=== PATIENT | female | born 1930 | race Caucasian/White ===

== ENCOUNTER → 2016-05-08 | Outpatient (CLI) | payer MEDICARE, OTHER | LOC: RAD 11:59 | PROVIDERS: ATTEND Family Medicine | DX: E04.1 Nontoxic single thyroid nodule (principal) | CPT/HCPCS: 76536; 78013; A9512; Q9969 ==

== ENCOUNTER 2019-08-23 05:48 | Inpatient (IN) | payer MEDICARE, OTHER ==
[2019-08-23] MEDS ORDERED: NORMAL SALINE 1000 ML 1,500 ML IV ONE (06:15)
--- NOTE | 2019-08-23 06:19 | ER Document Report ---
ED Fever - General TRAVEL OUTSIDE OF THE [place] IN LAST 30 DAYS: No <YOLANDA SCHMIDT - Last Filed: 08/23/19 08:12> <ZINA VIVEROS - Last Filed: 08/23/19 10:25> - General Chief Complaint: Fever Stated Complaint: COUGH Time Seen by Provider: 08/23/19 06:03 Primary Care Provider: RONALD AYALA MD [Primary Care Provider] - Follow up as needed Notes: Patient is an 88-year-old female that comes emergency department for chief complaint of an cough for the past 3 days. She states that she initially had the cough, felt like it was improving, but then suddenly worsened over the past evening. She comes by EMS, was found to have an initial temperature of 102 F. Patient was given 975 mg Tylenol. Patient denies sore throat, headache, chest pain, abdominal pain, vomiting, diarrhea, or shortness of breath at this time. She denies that the cough is productive. She denies recent illness exposure or travel, she states she has been staying home as much as possible. Patient is generally very healthy, has never smoked, denies any cardiovascular history, her only reported medical history is hyperlipidemia and hypothyroidism. Patient lives at home with her daughter. (YOLANDA SCHMIDT) - Related Data Allergies/Adverse Reactions: bacitracin [From Neosporin] Allergy (Severe, Verified 05/02/15 14:30) gramicidin D [From Neosporin] Allergy (Severe, Verified 05/02/15 14:30) neomycin sulfate [From Neosporin] Allergy (Severe, Verified 05/02/15 14:30) polymyxin B [From Neosporin] Allergy (Severe, Verified 05/02/15 14:30) Past Medical History - General Information source: Patient - Social History Smoking Status: Never Smoker Chew tobacco use (# tins/day): No Frequency of alcohol use: None Drug Abuse: None Lives with: Family Family History: Reviewed & Not Pertinent Patient has homicidal ideation: No - Past Medical History Cardiac Medical History: Reports: Hx Hypercholesterolemia - meds x 1 year Denies: Hx Atrial Fibrillation, Hx Congestive Heart Failure, Hx Coronary Artery Disease, Hx Heart Attack, Hx Peripheral Vascular Disease, Hx Heart Murmur Pulmonary Medical History: Denies: Hx Asthma Neurological Medical History: Denies: Hx Cerebrovascular Accident, Hx Seizures Endocrine Medical History: Reports: Hx Hypothyroidism - meds x 30 years. Denies: Hx Graves' Disease, Hx Hyperthyroidism Renal/ Medical History: Reports: Hx Ovarian Cysts - unilat S&O at age 26 years. Denies: Hx End Stage Renal Disease, Hx Kidney Stones, Hx Peritoneal Dialysis, Hx Pelvic Inflammatory Disease Malignancy Medical History: Denies: Hx Breast Cancer, Hx Cervical Cancer, Hx Leukemia, Hx Ovarian Cancer GI Medical History: Denies: Hx Hepatitis, Hx Hiatal Hernia, Hx Ulcer Musculoskeletal Medical History: Reports Hx Arthritis, Denies Hx Fibromyalgia, Denies Hx Systemic Lupus Erythematosus Psychiatric Medical History: Reports: Hx Depression Denies: Hx Bipolar Disorder, Hx Post Traumatic Stress Disorder, Hx Schizophrenia Traumatic Medical History: Reports: Hx Fractures - conner hips, 2002 LT, 2008 RT Infectious Medical History: Denies: Hx Hepatitis, Hx HIV Past Surgical History: Reports: Hx Appendectomy - at age [age] years old, Hx Tonsillectomy - as child. Denies: Hx Bowel Surgery, Hx Section, Hx Cholecystectomy, Hx Coronary Artery Bypass Graft, Hx Gastric Bypass Surgery, Hx Herniorrhaphy, Hx Hysterectomy, Hx Mastectomy, Hx Open Heart Surgery, Hx Pacemaker, Hx Tubal Ligation <YOLANDA SCHMIDT - Last Filed: 08/23/19 08:12> Review of Systems - Review of Systems Constitutional: See HPI EENT: No symptoms reported Cardiovascular: No symptoms reported Respiratory: See HPI Gastrointestinal: No symptoms reported Genitourinary: No symptoms reported Female Genitourinary: No symptoms reported Musculoskeletal: No symptoms reported Skin: No symptoms reported Hematologic/Lymphatic: No symptoms reported Neurological/Psychological: No symptoms reported <YOLANDA SCHMIDT - Last Filed: 08/23/19 08:12> Physical Exam <YOLANDA SCHMIDT - Last Filed: 08/23/19 08:12> - Vital signs Vitals: Temp Pulse Resp BP Pulse Ox 99.9 F 104 H 20 136/56 H 93 08/23/19 05:56 08/23/19 05:56 08/23/19 05:56 08/23/19 05:56 08/23/19 05:56 - Notes Notes: GENERAL: Alert, interacts well. No acute distress. HEAD: Normocephalic, atraumatic. EYES: Pupils equal, round, and reactive to light. Extraocular movements intact. ENT: Oral mucosa moist, tongue midline. Oropharynx unremarkable. Airway patent. Nares patent, sinuses non-tender NECK: Full range of motion. Supple. Trachea midline. No lymphadenopathy. LUNGS: Coarse breath sounds bilaterally, no wheezes, rales, or rhonchi. No respiratory distress. Non-tender chest wall. Speaks in full sentences. HEART: Borderline tachycardic, normal rhythm, no murmur ABDOMEN: Soft, non-tender. Non-distended. No guarding or rigidity. Normal bowel sounds. EXTREMITIES: Moves all 4 extremities spontaneously. No edema, normal radial and dorsalis pedis pulses bilaterally. No cyanosis. BACK: no cervical, thoracic, lumbar midline tenderness. No saddle anesthesia, normal distal neurovascular exam. Moves all extremities in full range of motion. NEUROLOGICAL: Alert and oriented x3. Normal speech. Cranial nerves II through XII grossly intact. Strength 5/5 in all extremities. PSYCH: Normal affect, normal mood. SKIN: Warm, dry, normal turgor. No rashes or lesions noted. (YOLANDA SCHMIDT) Course - Laboratory Result Diagrams: 08/23/19 06:30 08/23/19 06:30 <YOLANDA SCHMIDT - Last Filed: 08/23/19 08:12> - Laboratory Result Diagrams: 08/23/19 06:30 08/23/19 06:30 - Diagnostic Test Radiology reviewed: Reports reviewed <ZINA VIVEROS - Last Filed: 08/23/19 10:25> - Re-evaluation Re-evalutation: Patient is borderline tachycardic, has borderline hypoxia on room air, and she does have a cough and some coarse breath sounds. Clinically suspect she has pneumonia. Septic work-up pending. Starting on 30 cc/kg IV fluids which alicia culates approximately 1500 mL's, starting on Rocephin. CBC shows no leukocytosis but does show 2% bands and elevated neutrophils. Nonspecific. Chemistry shows elevated LFTs with AST at 1200s. Bilirubin is slightly elevated as well. I suspect this is reactive, possibly from sepsis. Lactic acid is 3.3. Chest x-ray showing possible left lower lobe pneumonia and large hiatal hernia. Blood gas unremarkable. Patient mildly hypoxic and on evaluation she actually became hypoxic down to 87% when she fell asleep. She was placed on 2 L nasal cannula. Clinical picture is most consistent with pneumonia, sepsis without shock, hypoxia requiring oxygen. Patient will require admission. Right upper quadrant ultrasound was added because of abnormal liver function tests and bilirubin. 08/23/19 08:[address] Otero, hospitalist, request right upper quadrant ultrasound results first and a call back. Report was given to Zina WOOD. (ROXANA,YOLANDA) 08/23/19 09:37 Patient's ultrasound report back, no findings for acute cholecystitis, attempted to call hospitalist Dr. Yoon for admission, he will call back within 20 minutes. 08/23/19 10:15 Consulted with regarding patient presentation, Dr. Yoon does agree to accept patient to telemetry medical bed at this time. (ZINA VIVEROS) - Vital Signs Vital signs: Temp Pulse Resp BP Pulse Ox 99.9 F 104 H 18 118/56 L 99 08/23/19 05:57 08/23/19 05:56 08/23/19 08:00 08/23/19 08:31 08/23/19 08:00 - Laboratory Laboratory results interpreted by me: 08/23/19 08/23/19 08/23/19 06:30 06:30 06:30 RDW 14.7 H Seg Neuts % (Manual) 88 H Band Neutrophils % 2 L Lymphocytes % (Manual) 6 L Abs Lymphs (Manual) 0.3 L Potassium 3.2 L Glucose 159 H Lactic Acid 3.3 H Total Bilirubin 1.7 H Direct Bilirubin 1.0 H AST 1260 H ALT 439 H Alkaline Phosphatase 151 H Albumin 3.4 L Urine Protein Urine Blood Urine Urobilinogen Leukocyte Esterase Rfl 08/23/19 08/23/19 09:45 09:45 RDW Seg Neuts % (Manual) Band Neutrophils % Lymphocytes % (Manual) Abs Lymphs (Manual) Potassium Glucose Lactic Acid 2.3 H Total Bilirubin Direct Bilirubin AST ALT Alkaline Phosphatase Albumin Urine Protein 30 H Urine Blood MODERATE H Urine Urobilinogen 4.0 H Leukocyte Esterase Rfl TRACE H 08/23/19 10:25 Labs- All tests 24 hr 08/23/19 08/23/19 08/23/19 06:30 06:30 06:30 WBC 4.8 RBC 4.08 Hgb 12.8 Hct 37.1 MCV 91 MCH 31.4 MCHC 34.5 RDW 14.7 H Plt Count 181 Lymph % (Auto) Not Reportable [place] % (Auto) Not Reportable Eos % (Auto) Not Reportable Baso % (Auto) Not Reportable Absolute Neuts (auto) Not Reportable Absolute Lymphs (auto) Not Reportable Absolute Monos (auto) Not Reportable Absolute Eos (auto) Not Reportable Absolute Basos (auto) Not Reportable Total Counted 100 Seg Neutrophils % Not Reportable Seg Neuts % (Manual) 88 H Band Neutrophils % 2 L Lymphocytes % (Manual) 6 L Monocytes % (Manual) 3 Eosinophils % (Manual) 1 Basophils % (Manual) 0 Abs Neuts (Manual) 4.3 Abs Lymphs (Manual) 0.3 L Abs Monocytes (Manual) 0.1 Absolute Eos (Manual) 0.0 Abs Basophils (Manual) 0.0 Clumped Platelets PRESENT Platelet Comment ADEQUATE Anisocytosis SLIGHT PT 14.8 INR 1.15 VBG pH VBG pCO2 VBG HCO3 VBG Base Excess Sodium Potassium Chloride Carbon Dioxide Anion Gap BUN Creatinine Est GFR ( Amer) Est GFR (MDRD) Non-Af Glucose Lactic Acid 3.3 H Calcium Total Bilirubin Direct Bilirubin Neonat Total Bilirubin Neonat Direct Bilirubin Neonat Indirect Bili AST ALT Alkaline Phosphatase Troponin I Total Protein Albumin Urine Color Urine Appearance Urine pH Ur Specific Cory Urine Protein Urine Glucose (UA) Urine Ketones Urine Blood Urine Nitrite (Reflex) Urine Bilirubin Urine Urobilinogen Leukocyte Esterase Rfl Urine RBC (Auto) Urine Bacteria (Auto) Urine WBC (Reflex) Squamous Epi Cells Auto Urine Mucus (Auto) Urine Ascorbic Acid SARS-CoV-2 (PCR) 08/23/19 08/23/19 08/23/19 06:30 06:30 06:30 WBC RBC Hgb Hct MCV MCH MCHC RDW Plt Count Lymph % (Auto) [place] % (Auto) Eos % (Auto) Baso % (Auto) Absolute Neuts (auto) Absolute Lymphs (auto) Absolute Monos (auto) Absolute Eos (auto) Absolute Basos (auto) Total Counted Seg Neutrophils % Seg Neuts % (Manual) Band Neutrophils % Lymphocytes % (Manual) Monocytes % (Manual) Eosinophils % (Manual) Basophils % (Manual) Abs Neuts (Manual) Abs Lymphs (Manual) Abs Monocytes (Manual) Absolute Eos (Manual) Abs Basophils (Manual) Clumped Platelets Platelet Comment Anisocytosis PT INR VBG pH 7.39 VBG pCO2 41.9 VBG HCO3 25.0 VBG Base Excess 0.1 Sodium 138.1 Potassium 3.2 L Chloride 103 Carbon Dioxide 29 Anion Gap 6 BUN 11 Creatinine 0.54 Est GFR ( Amer) > 60 Est GFR (MDRD) Non-Af > 60 Glucose 159 H Lactic Acid Calcium 9.4 Total Bilirubin 1.7 H Direct Bilirubin 1.0 H Neonat Total Bilirubin Not Reportable Neonat Direct Bilirubin Not Reportable Neonat Indirect Bili Not Reportable AST 1260 H ALT 439 H Alkaline Phosphatase 151 H Troponin I < 0.012 Total Protein 6.3 Albumin 3.4 L Urine Color Urine Appearance Urine pH Ur Specific Cory Urine Protein Urine Glucose (UA) Urine Ketones Urine Blood Urine Nitrite (Reflex) Urine Bilirubin Urine Urobilinogen Leukocyte Esterase Rfl Urine RBC (Auto) Urine Bacteria (Auto) Urine WBC (Reflex) Squamous Epi Cells Auto Urine Mucus (Auto) Urine Ascorbic Acid SARS-CoV-2 (PCR) 08/23/19 08/23/19 08/23/19 08:20 09:45 09:45 WBC RBC Hgb Hct MCV MCH MCHC RDW Plt Count Lymph % (Auto) [place] % (Auto) Eos % (Auto) Baso % (Auto) Absolute Neuts (auto) Absolute Lymphs (auto) Absolute Monos (auto) Absolute Eos (auto) Absolute Basos (auto) Total Counted Seg Neutrophils % Seg Neuts % (Manual) Band Neutrophils % Lymphocytes % (Manual) Monocytes % (Manual) Eosinophils % (Manual) Basophils % (Manual) Abs Neuts (Manual) Abs Lymphs (Manual) Abs Monocytes (Manual) Absolute Eos (Manual) Abs Basophils (Manual) Clumped Platelets Platelet Comment Anisocytosis PT INR VBG pH VBG pCO2 VBG HCO3 VBG Base Excess Sodium Potassium Chloride Carbon Dioxide Anion Gap BUN Creatinine Est GFR ( Amer) Est GFR (MDRD) Non-Af Glucose Lactic Acid 2.3 H Calcium Total Bilirubin Direct Bilirubin Neonat Total Bilirubin Neonat Direct Bilirubin Neonat Indirect Bili AST ALT Alkaline Phosphatase Troponin I Total Protein Albumin Urine Color YELLOW Urine Appearance SLIGHTLY-CLOUDY Urine pH 6.0 Ur Specific Cory 1.010 Urine Protein 30 H Urine Glucose (UA) NEGATIVE Urine Ketones NEGATIVE Urine Blood MODERATE H Urine Nitrite (Reflex) NEGATIVE Urine Bilirubin NEGATIVE Urine Urobilinogen 4.0 H Leukocyte Esterase Rfl TRACE H Urine RBC (Auto) 2 Urine Bacteria (Auto) 2+ Urine WBC (Reflex) 9 Squamous Epi Cells Auto 1 Urine Mucus (Auto) OCC Urine Ascorbic Acid NEGATIVE SARS-CoV-2 (PCR) NEGATIVE (ZINA VIVEROS) Discharge <YOLANDA SCHMIDT - Last Filed: 08/23/19 08:12> - Discharge Admitting Provider: Onwe (Hospitalist) Unit Admitted: Telemetry <ZINA VIVEROS - Last Filed: 08/23/19 10:25> - Discharge Clinical Impression: Hypoxia Fever Qualifiers: Fever type: unspecified Qualified Code(s): R50.9 - Fever, unspecified Pneumonia Qualifiers: Pneumonia type: due to unspecified organism Laterality: left Lung location: lower lobe of lung Qualified Code(s): J18.9 - Pneumonia, unspecified organism Condition: Fair Disposition: ADMITTED INPATIENT Referrals: RNOALD AYALA MD [Primary Care Provider] - Follow up as needed
[2019-08-23 06:43] LABS: HEMATOCRIT 37.1 % (36.0-47.0); HEMOGLOBIN 12.8 g/dL (12.0-15.5); MEAN CORPUSCULAR HEMOGLOBIN 31.4 pg (27.0-33.4); MEAN CORPUSCULAR HGB CONC 34.5 g/dL (32.0-36.0); MEAN CORPUSCULAR VOLUME 91 fl (80-97); RED BLOOD COUNT 4.08 10^6/uL (3.72-5.28); RED CELL DISTRIBUTION WIDTH 14.7 % (11.5-14.0); WHITE BLOOD COUNT 4.8 10^3/uL (4.0-10.5)
[2019-08-23 06:45] LABS: VENOUS BLOOD BASE EXCESS 0.1 mmol/L; VENOUS BLOOD PCO2 41.9 mmHg (35-63); VENOUS BLOOD PH 7.39 (7.30-7.42)
[2019-08-23 06:57] LABS: INTERNATIONAL RATION (INR) 1.15; PROTHROMBIN TIME 14.8 SEC (11.4-15.4)
[2019-08-23 07:03] LABS: ALBUMIN 3.4 g/dL (3.5-5.0); ALKALINE PHOSPHATASE 151 U/L (38-126); ANION GAP 6 (5-19); BILIRUBIN,TOTAL 1.7 mg/dL (0.2-1.3); BLOOD UREA NITROGEN 11 mg/dL (7-20); CALCIUM 9.4 mg/dL (8.4-10.2); CARBON DIOXIDE 29 mmol/L (22-30); CHLORIDE 103 mmol/L (98-107); GLUCOSE 159 mg/dL (75-110); POTASSIUM 3.2 mmol/L (3.6-5.0); TOTAL PROTEIN 6.3 g/dL (6.3-8.2)
[2019-08-23 07:07] LABS: ABSOLUTE LYMPHOCYTES# (MANUAL) 0.3 10^3/uL (0.5-4.7); ABSOLUTE MONOCYTES # (MANUAL) 0.1 10^3/uL (0.1-1.4); BAND NEUTROPHILS % (MANUAL) 2 % (3-5); BASOPHILS % (MANUAL) 0 % (0-2); EOSINOPHILS % (MANUAL) 1 % (0-6); LYMPHOCYTES % (MANUAL) 6 % (13-45); MONOCYTES % (MANUAL) 3 % (3-13); SEGMENTED NEUTROPHILS % (MAN) 88 % (42-78); TOTAL CELLS COUNTED 100
[2019-08-23 07:09] LABS: ANISOCYTOSIS SLIGHT; PLATELET CLUMPS PRESENT; PLATELET COMMENT ADEQUATE; PLATELET COUNT 181 10^3/uL (150-450)
[2019-08-23] MEDS ORDERED: CEFTRIAXONE 1 GM/D5W RTU 1 GM/50 ML RTUPB IV ONE (07:10)
[2019-08-23 07:11] LABS: ASPARTATE AMINO TRANSFERASE 1260 U/L (14-36)
--- NOTE | 2019-08-23 07:21 | RADIOLOGY REPORT (SQ) ---
CHEST 1 VIEW on 08/23/2019 at 6:39 AM CLINICAL INDICATION: Fever, worsening cough COMPARISON: 03/06/2014 FINDINGS: There has been further increase in size of a very large hiatal hernia. Heart is within normal limits for size. Vascular calcification is noted in the aorta. Biapical pulmonary scarring is noted. There could be opacity in the left lower lung versus this being enteric contents within the stomach. Lungs are otherwise clear. IMPRESSION: 1. Large hiatal hernia. 2. Possible opacity in the left lower lung that could represent an area of pneumonia versus this being enteric contents within the patient's large hiatal hernia. Consider lateral view of the chest or CT to better evaluate.
[2019-08-23] MEDS ORDERED: AZITHROMYCIN INJ 500 MG VIAL IV ONE (07:27)
--- NOTE | 2019-08-23 09:33 | RADIOLOGY REPORT (SQ) ---
EXAM DESCRIPTION: U/S ABDOMEN LIMITED W/O DOP IMAGES COMPLETED DATE/TIME: 08/23/2019 9:17 am REASON FOR STUDY: elevated LFTs, elevated bili, fever COMPARISON: None. TECHNIQUE: Dynamic and static grayscale images acquired of the abdomen and recorded on PACS. [place] selected color Doppler and spectral images recorded. LIMITATIONS: None. FINDINGS: PANCREAS: No masses. Visualized pancreatic duct normal caliber. LIVER: No masses. Echotexture normal. LIVER VASCULATURE: Normal directional flow of the main portal vein and hepatic veins. GALLBLADDER: Decompressed gallbladder with borderline thickened wall measuring 3.4 mm. No pericholec ystic fluid. No cholelithiasis. ULTRASOUND-DETECTED DUNN'S SIGN: Negative. INTRAHEPATIC DUCTS AND COMMON DUCT: CBD and intrahepatic ducts normal caliber. No filling defects. INFERIOR VENA CAVA: Normal flow. AORTA: No aneurysm. RIGHT KIDNEY: Normal size measuring 9.1 cm. Normal echogenicity. No solid or suspicious masses. No h ydronephrosis. No calcifications. PERITONEAL AND RIGHT PLEURAL SPACE: No ascites or effusions. OTHER: No other significant findings. IMPRESSION: 1. Decompressed gallbladder with borderline thickened wall, likely secondary to decompr essed state. No cholelithiasis or other evidence of acute cholecystitis. 2. No biliary ductal dilation or other evidence of acute abdominal process. TECHNICAL DOCUMENTATION: JOB ID: [id number] 2010 [employer]- All Rights Reserved Reading location - IP/workstation name: [email or web address]
[2019-08-23 10:07] LABS: APPEARANCE,URINE SLIGHTLY-CLOUDY; BILIRUBIN,URINE NEGATIVE (NEGATIVE); GLUCOSE, URINE NEGATIVE (NEGATIVE); KETONES,URINE NEGATIVE (NEGATIVE); PROTEIN,URINE 30 mg/dL (NEGATIVE)
[2019-08-23 10:09] LABS: COLOR,URINE YELLOW
[2019-08-23 10:48] LABS: ACETAMINOPHEN < 10 ug/mL (10-30); ALCOHOL < 10 mg/dL (NONE DETECTED)
[2019-08-23] MEDS ORDERED: ALBUTEROL SULFATE 0.083% NEB 2.5 MG/3 ML AMPUL NEB PRN (10:51)
[2019-08-23] MEDS ORDERED: ACETAMINOPHEN 325 MG TABLET PO PRN (10:51)
[2019-08-23] MEDS ORDERED: GUAIFENESIN SYRP 200 MG/10 ML UDC PO PRN (10:51)
--- NOTE | 2019-08-23 11:19 | RADIOLOGY REPORT (SQ) ---
EXAM DESCRIPTION: CT CHEST WITHOUT IMAGES COMPLETED DATE/TIME: 08/23/2019 10:58 am REASON FOR STUDY: cough COMPARISON: Same day radiograph. TECHNIQUE: CT scan performed of the chest without intravenous contrast. Images reviewed with lung, soft tissue and bone windows. Reconstructed coronal and sagittal MPR images reviewed. All images st ored on PACS. All CT scanners at this facility use dose modulation, iterative reconstruction, and/or weight based d osing when appropriate to reduce radiation dose to as low as reasonably achievable (ALARA). [facility]: Dose Right [facility]: CareDose [facility]: Dose Right [facility]: Teradose 4D [facility]: Smart [place] RADIATION DOSE: CT Rad equipment meets quality standard of care and radiation dose reduction techniq ues were employed. CTDIvol: 8.8 mGy. DLP: 311 mGy-cm. mGy. LIMITATIONS: No technical limitations. FINDINGS: LUNGS AND PLEURA: Emphysematous change with upper lobe peripheral predominant areas of sca rring and ground-glass attenuation. Additional dependent mild ground-glass attenuation within the bi lateral lower lobes. Large hiatal hernia with adjacent consolidation, likely atelectasis or scarring . No significant pleural effusion. No pneumothorax. No discrete pulmonary masses. Patchy ground-g lass attenuation obscures evaluation of small pulmonary nodules within the upper lobes. HILAR AND MEDIASTINAL STRUCTURES: No discrete mediastinal, hilar or axillary adenopathy. HEART AND VASCULAR STRUCTURES: No pericardial effusion. Scattered three-vessel coronary atherosclero sis. Mild dilation of the ascending aorta measuring up to 3.7 cm with scattered atherosclerotic plaq ue. Normal heart size. UPPER ABDOMEN: Large hiatal hernia. Scattered aortic atherosclerosis. No acute findings as visualiz ed. THYROID AND OTHER SOFT TISSUES: Heterogeneous thyroid with a 15 mm hypodense left lobe nodule, better evaluated on prior ultrasound. BONES: No acute bony abnormality. Decreased osseous mineralization with multilevel thoracic spondylo sis. No suspicious lytic or blastic osseous lesions. HARDWARE: None in the chest. OTHER: No other significant findings. IMPRESSION: 1. Large hiatal hernia, similar to priors. Mild adjacent left basilar consolidation, l ikely atelectasis or scarring. 2. Emphysematous change. Upper lobe peripheral predominant scarring and ground-glass attenuation leon ggestive of nonspecific fibrotic change. Superimposed infectious/inflammatory process not entirely e xcluded. 3. Additional incidental findings as above. TECHNICAL DOCUMENTATION: JOB ID: [id number] Quality ID # [id number]: Final reports with documentation of one or more dose reduction techniques (e.g., Au tomated exposure control, adjustment of the mA and/or kV according to patient size, use of iterative reconstruction technique) 2010 [employer]- All Rights Reserved Reading location - IP/workstation name: [email or web address]
[2019-08-23 11:20] LABS: URINE AMPHETAMINES SCREEN NEGATIVE; URINE BARBITURATES SCREEN NEGATIVE; URINE BENZODIAZEPINES SCREEN NEGATIVE; URINE COCAINE SCREEN NEGATIVE; URINE MARIJUANA (THC) SCREEN NEGATIVE; URINE METHADONE SCREEN NEGATIVE; URINE PHENCYCLIDINE SCREEN NEGATIVE
[2019-08-23] MEDS ORDERED: POTASSIUM CHLORIDE 10 MEQ TABLET.ER PO ONE (11:30)
[2019-08-23] MEDS: HEPARIN SOD (PORCINE) 5,000 UNIT/ML 1 ML VIAL SUBCUT SCH ×2 (13:17→21:56)
--- NOTE | 2019-08-23 15:18 | RADIOLOGY REPORT (SQ) ---
EXAM DESCRIPTION: L SPINE WHOLE IMAGES COMPLETED DATE/TIME: 08/23/2019 2:49 pm REASON FOR STUDY: back pain; report of compression fractures COMPARISON: Same day chest CT NUMBER OF VIEWS: Five views including obliques. TECHNIQUE: AP, lateral, oblique, and sacral radiographic images acquired of the lumbar spine. LIMITATIONS: None. FINDINGS: MINERALIZATION: Decreased. SEGMENTATION: No definite transitional anatomy. ALIGNMENT: Serpiginous thoracolumbar curvature. VERTEBRAE: Multilevel compression deformities likely involving vertebral bodies L1 through L3, chron[place] city uncertain. Additional biconcave deformity L4 vertebral body, chronicity uncertain. DISCS: Degenerative changes throughout the lumbar spine with multilevel disc height loss and endplate change. POSTERIOR ELEMENTS: Multilevel facet arthropathy. HARDWARE: None in the spine. Partially visualized bilateral hip arthroplasties. PARASPINAL SOFT TISSUES: Extensive vascular calcification. PELVIS: Intact as visualized. No fractures or worrisome bone lesions. SI joints intact. OTHER: No other significant finding. IMPRESSION: 1. Multilevel compression deformities likely involving L1- L4 although evaluation somew hat limited secondary to thoracolumbar curvature. Chronicity uncertain secondary to lack of recent p riors. MRI could be considered for further characterization of chronicity. 2. Severely decreased osseous mineralization. 3. 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 TECHNICAL DOCUMENTATION: JOB ID: [id number] 2010 [employer]- All Rights Reserved Reading location - IP/workstation name: [email or web address]
[2019-08-23] MEDS: ALBUTEROL SULFATE 0.083% NEB 2.5 MG/3 ML AMPUL NEB SCH (15:24)
--- NOTE | 2019-08-23 17:14 | PDOC H&P ---
History of Present Illness Admission Date/PCP: 08/23/19 10:45 RONALD AYAAL MD Patient complains of: fever, cough History of Present Illness: REUBEN VELAZQUEZ is a 88 year old female with a past medical history significant for hypothyroidism, HTN, and HLD who presented to the emergency department via EMS with a complaint of 1 week of intermittent fevers (102 upon EMS arrival), nonproductive cough, and generalized weakness. Spoke with the patient's daughter who reports that she has had slight increase in forgetfulness. Daughter also reports that she has had severe lumbar back pain for the last 2 months; recent x-ray imaging done at her primary care provider's office revealed multiple compression fractures. Due to the COVID precautions, they have not b een able to follow-up with orthopedics or pain management for further evaluation. Otherwise, the daughter has not noted any changes to the patient's health. Evaluation in the emergency department revealed temperature 99.9 (having received Tylenol by EMS), relative tachycardia with a heart rate of 91 tachypnea (RR 28), mild hypoxia on room air (per nursing report 87% although not documented), CBC showed normal WBCs but with elevated neutrophils, and a chemistry showing mild hypokalemia with elevated LFTs (total bili 1.7, AST 1260, ALT 439, alk phos 151) lactic acid elevated to 3.3, negative troponin, negative proBNP, unremarkable urinalysis, and negative toxicology screening including serum EtOH. Chest x-ray revealed a large hiatal hernia with possible left lower lung opacity, although difficult to differentiate due to the hernia with recommendations for CT imaging. Based upon these findings, patient was provided IV fluids, IV Rocephin and azithromycin and subsequently referred to the hospitalist service for further evaluation and management of the above-stated complaints findings. Past Medical History Cardiac Medical History: Reports: Hyperlipidema, Hypertension Pulmonary Medical History: Denies: Asthma EENT Medical History: Reports: None Neurological Medical History: Reports: None Denies: Seizures Endocrine Medical History: Reports: Hypothyroidism Denies: Hyperthyroidism Renal/ Medical History: Denies: End Stage Renal Disease Malignancy Medical History: Denies: Breast Cancer, Cervical Cancer, Leukemia, Ovarian Cancer GI Medical History: Denies: Hepatitis, Hiatal Hernia Musculoskeltal Medical History: Reports: Arthritis, Other - lumbar compression fractures Denies: Fibromyalgia Psychiatric Medical History: Reports: Depression Denies: Bipolar Disorder, Post Traumatic Stress Disorder Hematology: Denies: Hemophilia, Sickle Cell Disease Infectious Medical History: Denies: HIV Past Surgical History Past Surgical History: Reports: Appendectomy, Orthopedic Surgery, Tonsillectomy Denies: Section, Cholecystectomy, Coronary Artery Bypass Graft, Gastric Bypass Surgery, Herniorrhaphy, Hysterectomy, Mastectomy, Pacemaker, Tubal Ligation Social History Information Source: Patient, Relative Lives with: Family Smoking Status: Never Smoker Electronic Cigarette use?: No Frequency of Alcohol Use: None Hx Recreational Drug Use: No Drugs: None Hx Prescription Drug Abuse: No - Advance Directive Resuscitation Status: Do Not Resuscitate Surrogate healthcare decision maker:: Patient's daughter, Maggie Velazquez Family History Family History: Reviewed & Not Pertinent Parental Family History Reviewed: Yes Children Family History Reviewed: Yes Sibling(s) Family History Reviewed.: Yes Medication/Allergy Home Medications: Aspirin [Ecotrin 81 mg EC Tablet] 81 mg PO DAILY 03/28/14 Brimonidine Tartrate [Alphagan P] 1 drop OD Q8 03/28/14 Dorzolamide HCl/Timolol Maleat [Cosopt Oph Soln 10 Ml Bottle] 1 drop OD BID 03/28/14 Levothyroxine Sodium [Synthroid] 50 mcg PO QAM 03/28/14 Duloxetine HCl [Cymbalta 20 Mg Capsule.Dr] 20 mg PO DAILY 08/23/19 Allergies/Adverse Reactions: bacitracin [From Neosporin] Allergy (Severe, Verified 05/02/15 14:30) gramicidin D [From Neosporin] Allergy (Severe, Verified 05/02/15 14:30) neomycin sulfate [From Neosporin] Allergy (Severe, Verified 05/02/15 14:30) polymyxin B [From Neosporin] Allergy (Severe, Verified 05/02/15 14:30) Review of Systems Constitutional: PRESENT: fatigue, fever(s). ABSENT: chills, headache(s), weight gain, weight loss Eyes: ABSENT: visual disturbances Ears: ABSENT: hearing changes Cardiovascular: ABSENT: chest pain, dyspnea on exertion, edema, orthropnea, palpitations Respiratory: PRESENT: cough, dyspnea. ABSENT: hemoptysis Gastrointestinal: ABSENT: abdominal pain, constipation, diarrhea, hematemesis, hematochezia, nausea, vomiting Genitourinary: ABSENT: dysuria, hematuria Musculoskeletal: ABSENT: joint swelling Integumentary: ABSENT: rash, wounds Neurological: ABSENT: abnormal gait, abnormal speech, confusion, dizziness, focal weakness, syncope Psychiatric: ABSENT: anxiety, depression, homidical ideation, suicidal ideation Endocrine: ABSENT: cold intolerance, heat intolerance, polydipsia, polyuria Hematologic/Lymphatic: ABSENT: easy bleeding, easy bruising Physical Exam Vital Signs: Temp Pulse Resp BP Pulse Ox 97.9 F 85 18 130/49 H 95 08/23/19 15:19 08/23/19 15:24 08/23/19 15:24 08/23/19 15:19 08/23/19 15:24 Intake & Output 08/22/19 08/23/19 08/24/19 06:59 06:59 06:59 Intake Total 1550 Balance 1550 Weight 49.895 kg 50.9 kg General appearance: PRESENT: no acute distress, cooperative, thin, well- developed Head exam: PRESENT: atraumatic, normocephalic Eye exam: PRESENT: conjunctiva pink, EOMI, PERRLA. ABSENT: scleral icterus Mouth exam: PRESENT: moist, tongue midline Respiratory exam: PRESENT: clear to auscultation conner, decreased breath sounds, symmetrical, unlabored, other - Supplemental oxygen; home O2 dependent. ABSENT: rales, rhonchi, wheezes Cardiovascular exam: PRESENT: RRR. ABSENT: diastolic murmur, rubs, systolic m urmur Pulses: PRESENT: normal dorsalis pedis pul Vascular exam: PRESENT: normal capillary refill GI/Abdominal exam: PRESENT: normal bowel sounds, soft. ABSENT: distended, guarding, mass, organolmegaly, rebound, tenderness Rectal exam: PRESENT: deferred Extremities exam: PRESENT: full ROM. ABSENT: calf tenderness, clubbing, pedal edema Neurological exam: PRESENT: alert, awake, oriented to person, oriented to place, oriented to time, oriented to situation, CN II-XII grossly intact, other - Forgetful and slightly confused; self corrects during conversation. ABSENT: motor sensory deficit Psychiatric exam: PRESENT: appropriate affect, normal mood. ABSENT: homicidal ideation, suicidal ideation Skin exam: PRESENT: dry, intact, warm. ABSENT: cyanosis, rash Results Laboratory Results: 08/23/19 06:30 08/23/19 06:30 08/23/19 08/23/19 08/23/19 06:30 06:30 06:30 WBC 4.8 RBC 4.08 Hgb 12.8 Hct 37.1 MCV 91 MCH 31.4 MCHC 34.5 RDW 14.7 H Plt Count 181 Seg Neutrophils % Not Reportable VBG pH VBG pCO2 VBG HCO3 VBG Base Excess Sodium 138.1 Potassium 3.2 L Chloride 103 Carbon Dioxide 29 Anion Gap 6 BUN 11 Creatinine 0.54 Est GFR ( Amer) > 60 Glucose 159 H Lactic Acid 3.3 H Calcium 9.4 Total Bilirubin 1.7 H AST 1260 H Alkaline Phosphatase 151 H Total Protein 6.3 Albumin 3.4 L Urine Color Urine Appearance Urine pH Ur Specific Dexter Urine Protein Urine Glucose (UA) Urine Ketones Urine Blood Urine RBC (Auto) 08/23/19 08/23/19 08/23/19 06:30 09:45 09:45 WBC RBC Hgb Hct MCV MCH MCHC RDW Plt Count Seg Neutrophils % VBG pH 7.39 VBG pCO2 41.9 VBG HCO3 25.0 VBG Base Excess 0.1 Sodium Potassium Chloride Carbon Dioxide Anion Gap BUN Creatinine Est GFR ( Amer) Glucose Lactic Acid 2.3 H Calcium Total Bilirubin AST Alkaline Phosphatase Total Protein Albumin Urine Color YELLOW Urine Appearance SLIGHTLY-CLOUDY Urine pH 6.0 Ur Specific Dexter 1.010 Urine Protein 30 H Urine Glucose (UA) NEGATIVE Urine Ketones NEGATIVE Urine Blood MODERATE H Urine RBC (Auto) 2 08/23/19 13:47 WBC RBC Hgb Hct MCV MCH MCHC RDW Plt Count Seg Neutrophils % VBG pH VBG pCO2 VBG HCO3 VBG Base Excess Sodium Potassium Chloride Carbon Dioxide Anion Gap BUN Creatinine Est GFR ( Amer) Glucose Lactic Acid 3.0 H Calcium Total Bilirubin AST Alkaline Phosphatase Total Protein Albumin Urine Color Urine Appearance Urine pH Ur Specific Dexter Urine Protein Urine Glucose (UA) Urine Ketones Urine Blood Urine RBC (Auto) 08/23/19 08/23/19 06:30 06:30 Troponin I < 0.012 NT-Pro-B Natriuret Pep 263 Impressions: Chest CT 08/23/19 00:00 IMPRESSION: 1. Large hiatal hernia, similar to priors. Mild adjacent left basilar consolidation, likely atelectasis or scarring. 2. Emphysematous change. Upper lobe peripheral predominant scarring and ground-glass attenuation suggestive of nonspecific fibrotic change. Superimposed infectious/inflammatory process not entirely excluded. 3. Additional incidental findings as above. Lumbar Spine X-Ray 08/23/19 00:00 IMPRESSION: 1. Multilevel compression deformities likely involving L1- L4 alt rohan evaluation somewhat limited secondary to thoracolumbar curvature. Chronicity uncertain secondary to lack of recent priors. MRI could be considered for further characterization of chronicity. 2. Severely decreased osseous mineralization. 3. 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 Chest X-Ray 08/23/19 06:16 IMPRESSION: 1. Large hiatal hernia. 2. Possible opacity in the left lower lung that could represent an area of pneumonia versus this being enteric contents within the patient's large hiatal hernia. Consider lateral view of the chest or CT to better evaluate. Abdomen Ultrasound 08/23/19 07:52 IMPRESSION: 1. Decompressed gallbladder with borderline thickened wall, likely secondary to decompressed state. No cholelithiasis or other evidence of acute cholecystitis. 2. No biliary ductal dilation or other evidence of acute abdominal process. Assessment and Plan - Diagnosis (1) Pneumonia Qualifiers: Pneumonia type: due to unspecified organism Laterality: left Lung location: lower lobe of lung Qualified Code(s): J18.9 - Pneumonia, unspecified organism Is this a current diagnosis for this admission?: Yes Plan: CT chest showed a large hiatal hernia with mild adjacent left basilar consolidation likely atelectasis versus scarring. Emphysema type changes to the periphery of the upper lobes; superimposed infectious process not excluded. Blood cultures pending. Sputum cultures ordered. Patient is admitted to the medical floor on continuous cardiac telemetry. She is provided supplemental oxygen as needed to maintain saturations greater than 89%. Empirically placed on IV azithromycin and Rocephin. Scheduled and as needed nebulizer treatments. Robitussin as needed. Incentive spirometer at bedside. (2) Sepsis Qualifiers: Sepsis type: sepsis due to unspecified organism Sepsis acute organ dysfunction status: with acute organ dysfunction Severe sepsis acute organ dysfunction type: acute liver failure Hepatic coma status: without hepatic coma Severe sepsis shock status: without septic shock Qualified Code(s): A41.9 - Sepsis, unspecified organism; R65.20 - Severe sepsis without septic shock; K72.00 - Acute and subacute hepatic failure without coma Is this a current diagnosis for this admission?: Yes Plan: Sepsis, present on admission, presumably related to pneumonia, evidenced by fever, tachypnea, hypoxia, liver dysfunction, and elevated lactic acid. Patient received adequate IV fluid resuscitation in the ED; will continue gentle IV fluids. Blood and urine cultures are pending. Sputum culture ordered. She is empirically placed on IV Rocephin and azithromycin. (3) Elevated LFTs Is this a current diagnosis for this admission?: Yes Plan: Likely secondary to sepsis. Total bili 1.7, AST 1260, ALT 439, alk phos 151 RUQ ultrasound was benign. Spoke with her primary care provider, Dr. Woodard, today. Her routine lab work from last year showed normal transaminases. Discussed with patient and daughter; does not drink alcohol, no history of alcohol dependence, and no known history of hepatitis. IV fluids as above. Cultures and antibiotics as above. Follow-up chemistries. (4) Lumbar compression fracture Qualifiers: Lumbar vertebra fracture level: unspecified lumbar vertebra Is this a current diagnosis for this admission?: Yes Plan: Multi-level compression deformities L1-L4. Analgesics as needed. Nonpharmacological interventions. Pain management has been consulted; spoke with Dr. Martinez today. Once patient's sepsis has resolved, PNA treated, and cultures resulted will obtain MRI imagining to evaluate for possible kyphoplasty. Appreciate his evaluation and recommendations. (5) Hypothyroidism Is this a current diagnosis for this admission?: Yes Plan: Continue home dose levothyroxine (6) Fever Qualifiers: Fever type: unspecified Qualified Code(s): R50.9 - Fever, unspecified Is this a current diagnosis for this admission?: Yes Plan: Secondary to #1 and 2. Tylenol as needed. Remaining management as above. - Time Time Spent with patient: 35 or more minutes Medications reviewed and adjusted accordingly: Yes Anticipated discharge: Home - Inpatient Certification Based on my medical assessment, after consideration of the patient's comorbidities, presenting symptoms, or acuity I expect that the services needed warrant INPATIENT care.: Yes I certify that my determination is in accordance with my understanding of Medicare's requirements for reasonable and necessary INPATIENT services [42 CFR 412.3e].: Yes Medical Necessity: Need Close Monitoring Due to Risk of Patient Decompensation, Need For IV Fluids, Need For Continuous Telemetry Monitoring, Need for IV Antibiotics, Risk of Complication if Not Cared For in Hospital
[2019-08-23] MEDS: NORMAL SALINE 1000 ML 1,000 ML IV PRN (18:37)
[2019-08-23] MEDS: DORZOLAMIDE HCL 2%/TIMOLOL MALEAT 0.5% OPH SOLN 10 ML OD SCH (19:28)
[2019-08-23] MEDS ORDERED: NORMAL SALINE 1000 ML 1,000 ML IV ONE (20:30)
[2019-08-23] MEDS: FAMOTIDINE 20 MG TABLET PO SCH (21:56)
[2019-08-23] MEDS ORDERED: (PENDING PHARMACY ID) (Brimonidine Tartrate [Alphagan P] 1 DROP) OD SCH (22:00)
[2019-08-23] MEDS ORDERED: VANCOMYCIN HCL INJ 1000 MG VIAL IV PRN (22:36)
[2019-08-23] MEDS ORDERED: PHARMACY COMMUNICATION ORDER MC PRN (22:37)
[2019-08-23] MEDS ORDERED: VANCOMYCIN HCL 1,250 MG in DEXTROSE 5%-WATER 250 ML IV ONE (23:00)
[2019-08-23] MEDS ORDERED: VANCOMYCIN HCL INJ 500 MG VIAL ONE (23:09)
[2019-08-23] MEDS ORDERED: VANCOMYCIN HCL INJ 1000 MG VIAL ONE (23:09)
--- NOTE | 2019-08-23 23:36 | EKG REPORT ---
SEVERITY:- ABNORMAL ECG - SINUS RHYTHM ABNORMAL T, CONSIDER ISCHEMIA, LATERAL LEADS : Confirmed by: Ming Christianson 23-Aug-2019 23:35:56
[2019-08-24] MEDS: ALBUTEROL SULFATE 0.083% NEB 2.5 MG/3 ML AMPUL NEB SCH ×4 (00:41→23:56)
[2019-08-24 04:36] LABS: HEPATITS B SURFACE ANTIGEN Negative (Negative)
[2019-08-24] MEDS: HEPARIN SOD (PORCINE) 5,000 UNIT/ML 1 ML VIAL SUBCUT SCH ×3 (05:34→21:13)
[2019-08-24 05:43] LABS: HEMATOCRIT 33.8 % (36.0-47.0); HEMOGLOBIN 11.7 g/dL (12.0-15.5); MEAN CORPUSCULAR HEMOGLOBIN 31.7 pg (27.0-33.4); MEAN CORPUSCULAR HGB CONC 34.6 g/dL (32.0-36.0); MEAN CORPUSCULAR VOLUME 92 fl (80-97); PLATELET COUNT 109 10^3/uL (150-450); RED BLOOD COUNT 3.69 10^6/uL (3.72-5.28); RED CELL DISTRIBUTION WIDTH 15.2 % (11.5-14.0); WHITE BLOOD COUNT 9.4 10^3/uL (4.0-10.5)
[2019-08-24 06:07] LABS: ALBUMIN 2.7 g/dL (3.5-5.0); ALKALINE PHOSPHATASE 151 U/L (38-126); ANION GAP 5 (5-19); ASPARTATE AMINO TRANSFERASE 698 U/L (14-36); BILIRUBIN,DIRECT 2.1 mg/dL (0.0-0.4); BILIRUBIN,TOTAL 2.7 mg/dL (0.2-1.3); BLOOD UREA NITROGEN 8 mg/dL (7-20); CARBON DIOXIDE 27 mmol/L (22-30); CHLORIDE 105 mmol/L (98-107); GLUCOSE 83 mg/dL (75-110); POTASSIUM 3.4 mmol/L (3.6-5.0); TOTAL PROTEIN 5.3 g/dL (6.3-8.2)
[2019-08-24 07:03] LABS: HEPATITIS C VIRUS ANTIBODY <0.1 s/co ratio (0.0-0.9)
[2019-08-24] MEDS: LEVOTHYROXINE SODIUM 0.05 MG TABLET PO SCH (07:53)
[2019-08-24] MEDS ORDERED: CEFTRIAXONE 1 GM/D5W RTU 1 GM/50 ML RTUPB IV SCH (08:00)
[2019-08-24] MEDS ORDERED: VANCOMYCIN HCL 0 MG in DEXTROSE 5%-WATER 250 ML IV NR (08:30)
[2019-08-24] MEDS: DORZOLAMIDE HCL 2%/TIMOLOL MALEAT 0.5% OPH SOLN 10 ML OD SCH ×2 (09:48→17:07)
[2019-08-24] MEDS: FAMOTIDINE 20 MG TABLET PO SCH ×2 (09:49→21:14)
[2019-08-24] MEDS: DULOXETINE HCL 20 MG CAPSULE.DR PO SCH (09:49)
[2019-08-24] MEDS: ASPIRIN 81 MG TABLET, ENT COATED PO SCH (09:49)
[2019-08-24] MEDS: LIDOCAINE 5% (700 MG) TRANSDERMAL ADH..PATCH TP SCH (09:50)
[2019-08-24] MEDS: VANCOMYCIN HCL 500 MG in DEXTROSE 5%-WATER 100 ML IV SCH ×2 (09:52→21:13)
[2019-08-24] MEDS ORDERED: CEFTRIAXONE 2 GM/D5W RTU 2 GM/50 ML RTUPB IV SCH (10:00)
[2019-08-24] MEDS ORDERED: CEFTRIAXONE 1 GM/D5W RTU 1 GM/50 ML RTUPB IV ONE (10:00)
[2019-08-24] MEDS ORDERED: AZITHROMYCIN 500 MG in DEXTROSE 5%-WATER 250 ML IV SCH (10:00)
[2019-08-24] MEDS: NORMAL SALINE 1000 ML 1,000 ML IV PRN ×2 (14:19→21:14)
--- NOTE | 2019-08-24 18:38 | PDOC PROGRESS REPORT ---
Subjective Progress Note for:: 08/24/19 Subjective:: REUBEN CASTRO is a 88 year old female with a past medical history significant for hypothyroidism, HTN, and HLD who was admitted 08/23/2023 SIRS and found to have E. coli bacteremia. Patient was seen on afternoon rounds. She is found sitting up in recliner, comfortably, on room air. She reports that she is feeling much better today and does like to be in better health. She denies all symptoms including fever, chills, chest pain, palpitations, dyspnea, cough, abdominal pain, nausea, vomiting, diarrhea, dysuria, hematuria and urinary frequency. She denies any wounds. She expresses appreciation for the thoroughness of her work-up and care; no questions or concerns at this time. No concerns per nursing. Reason For Visit: FEVER,HYPOXIA,PNEUMONIA Physical Exam Vital Signs: Temp Pulse Resp BP Pulse Ox 98.0 F 80 18 148/83 H 97 08/24/19 14:59 08/24/19 16:51 08/24/19 16:51 08/24/19 14:59 08/24/19 16:51 Intake & Output 08/23/19 08/24/19 08/25/19 06:59 06:59 06:59 Intake Total 4390 660 Balance 4390 660 Weight 49.895 kg 52.1 kg General appearance: PRESENT: no acute distress, cooperative, thin, well- developed, well-nourished Head exam: PRESENT: atraumatic, normocephalic Eye exam: PRESENT: conjunctiva pink, EOMI, PERRLA. ABSENT: scleral icterus Mouth exam: PRESENT: moist, tongue midline Respiratory exam: PRESENT: clear to auscultation conner, symmetrical, unlabored. ABSENT: rales, rhonchi, wheezes Cardiovascular exam: PRESENT: RRR, +S1, +S2. ABSENT: diastolic murmur, rubs, systolic murmur Pulses: PRESENT: normal dorsalis pedis pul Vascular exam: PRESENT: normal capillary refill GI/Abdominal exam: PRESENT: normal bowel sounds, soft. ABSENT: distended, guarding, mass, organolmegaly, rebound, tenderness Rectal exam: PRESENT: deferred Extremities exam: PRESENT: full ROM. ABSENT: calf tenderness, clubbing, pedal edema Musculoskeletal exam: PRESENT: ambulatory Neurological exam: PRESENT: alert, awake, oriented to person, oriented to place, oriented to time, oriented to situation, CN II-XII grossly intact. ABSENT: motor sensory deficit Psychiatric exam: PRESENT: appropriate affect, normal mood. ABSENT: homicidal ideation, suicidal ideation Skin exam: PRESENT: dry, intact, warm. ABSENT: cyanosis, rash Results Laboratory Results: 08/24/19 05:28 08/24/19 05:28 08/23/19 08/24/19 08/24/19 19:55 05:28 05:28 WBC 9.4 RBC 3.69 L Hgb 11.7 L Hct 33.8 L MCV 92 MCH 31.7 MCHC 34.6 RDW 15.2 H Plt Count 109 L Sodium Potassium Chloride Carbon Dioxide Anion Gap BUN Creatinine Est GFR ( Amer) Glucose Lactic Acid 1.0 Calcium Total Bilirubin AST Alkaline Phosphatase Total Protein Albumin Lipase 90.1 08/24/19 05:28 WBC RBC Hgb Hct MCV MCH MCHC RDW Plt Count Sodium 136.6 L Potassium 3.4 L Chloride 105 Carbon Dioxide 27 Anion Gap 5 BUN 8 Creatinine 0.45 L Est GFR ( Amer) > 60 Glucose 83 Lactic Acid Calcium 8.0 L Total Bilirubin 2.7 H AST 698 H Alkaline Phosphatase 151 H Total Protein 5.3 L Albumin 2.7 L Lipase 08/23/19 06:30 Blood Blood Culture (PCR) - Final Escherichia Coli 08/23/19 08/23/19 06:30 06:30 Troponin I < 0.012 NT-Pro-B Natriuret Pep 263 Impressions: Chest CT 08/23/19 00:00 IMPRESSION: 1. Large hiatal hernia, similar to priors. Mild adjacent left basilar consolidation, likely atelectasis or scarring. 2. Emphysematous change. Upper lobe peripheral predominant scarring and ground-glass attenuation suggestive of nonspecific fibrotic change. Superimposed infectious/inflammatory process not entirely excluded. 3. Additional incidental findings as above. Lumbar Spine X-Ray 08/23/19 00:00 IMPRESSION: 1. Multilevel compression deformities likely involving L1- L4 although evaluation somewhat limited secondary to thoracolumbar curvature. Chronicity uncertain secondary to lack of recent priors. MRI could be considered for further characterization of chronicity. 2. Severely decreased osseous mineralization. 3. 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 Chest X-Ray 06/03/20 06:16 IMPRESSION: 1. Large hiatal hernia. 2. Possible opacity in the left lower lung that could represent an area of pneumonia versus this being enteric contents within the patient's large hiatal hernia. Consider lateral view of the chest or CT to better evaluate. Abdomen Ultrasound 08/23/19 07:52 IMPRESSION: 1. Decompressed gallbladder with borderline thickened wall, likely secondary to decompressed state. No cholelithiasis or other evidence of acute cholecystitis. 2. No biliary ductal dilation or other evidence of acute abdominal process. Assessment and Plan - Diagnosis (1) Bacteremia Is this a current diagnosis for this admission?: Yes Plan: E. coli bacteremia (1 bottle each set) Repeat cultures pending. Urine culture with gram-negative rods. Continue IV Rocephin and vancomycin until sensitivities result. (2) Pneumonia Qualifiers: Pneumonia type: due to unspecified organism Laterality: left Lung location: lower lobe of lung Qualified Code(s): J18.9 - Pneumonia, unspecified organism Is this a current diagnosis for this admission?: Yes Plan: Lower suspicion for pneumonia as the patient is now asymptomatic and on room air. Blood cultures show E. coli bacteremia (1 bottle each set). CT chest showed a large hiatal hernia with mild adjacent left basilar consolidation likely atelectasis versus scarring. Emphysema type changes to the periphery of the upper lobes; superimposed infectious process not excluded. Sputum cultures ordered. Patient is admitted to the medical floor on continuous cardiac telemetry. She is provided supplemental oxygen as needed to maintain saturations greater than 89%. She was empirically placed on IV azithromycin and Rocephin. Following blood culture results, and azithromycin has been discontinued, continuing increased dose Rocephin with the addition of vancomycin until susceptibilities result. Scheduled and as needed nebulizer treatments. Robitussin as needed. Incentive spirometer at bedside. (3) Sepsis Qualifiers: Sepsis type: sepsis due to unspecified organism Sepsis acute organ dysfunction status: with acute organ dysfunction Severe sepsis acute organ dysfunction type: acute liver failure Hepatic coma status: without hepatic c jesús Severe sepsis shock status: without septic shock Qualified Code(s): A41.9 - Sepsis, unspecified organism; R65.20 - Severe sepsis without septic shock; K72.00 - Acute and subacute hepatic failure without coma Is this a current diagnosis for this admission?: Yes Plan: Sepsis, present on admission, secondary to E. coli bacteremia., evidenced by fever, tachypnea, hypoxia, liver dysfunction, and elevated lactic acid. Patient received adequate IV fluid resuscitation in the ED; will continue gentle IV fluids. Blood cultures show E. coli (1 bottle each that) Urine culture growing gram-negative rods Sputum culture ordered. Antibiotics adjusted to IV Rocephin 2 g daily and IV vancomycin. Will adjust as sensitivities result. (4) Elevated LFTs Is this a current diagnosis for this admission?: Yes Plan: Improved; likely secondary to sepsis. Total bili 1.7, AST 1260, ALT 439, alk phos 151 RUQ ultrasound was benign. Spoke with her primary care provider, Dr. Woodard, today. Her routine lab work from last year showed normal transaminases. Discussed with patient and daughter; does not drink alcohol, no history of al cohol dependence, and no known history of hepatitis. IV fluids as above. Cultures and antibiotics as above. Follow-up chemistries. (5) Lumbar compression fracture Qualifiers: Lumbar vertebra fracture level: unspecified lumbar vertebra Is this a current diagnosis for this admission?: Yes Plan: Multi-level compression deformities L1-L4. Analgesics as needed. Nonpharmacological interventions. Pain management has been consulted; spoke with Dr. Martinez yesterday. Once patient's sepsis has resolved and cultures resulted will obtain MRI imagining to evaluate for possible kyphoplasty. Appreciate his evaluation and recommendations. (6) Hypothyroidism Is this a current diagnosis for this admission?: Yes Plan: Continue home dose levothyroxine (7) Fever Qualifiers: Fever type: unspecified Qualified Code(s): R50.9 - Fever, unspecified Is this a current diagnosis for this admission?: Yes Plan: Secondary to #1 and 2. Tylenol as needed. Remaining management as above. (8) UTI (urinary tract infection) Is this a current diagnosis for this admission?: Yes Plan: Patient denies urinary symptoms. Urinalysis suggestive of UTI. Urine culture shows gram-negative rods. Blood cultures (1 bottle each set) positive for E. coli bacteremia. Antibiotics as above. - Time Time Spent with patient: 25-34 minutes Medications reviewed and adjusted accordingly: Yes Anticipated discharge: Home
[2019-08-25] MEDS: HEPARIN SOD (PORCINE) 5,000 UNIT/ML 1 ML VIAL SUBCUT SCH ×3 (05:57→21:54)
[2019-08-25] MEDS: NORMAL SALINE 1000 ML 1,000 ML IV PRN (06:17)
[2019-08-25] MEDS: LEVOTHYROXINE SODIUM 0.05 MG TABLET PO SCH (07:23)
[2019-08-25] MEDS: CEFTRIAXONE 2 GM/D5W RTU 2 GM/50 ML RTUPB IV SCH (07:23)
[2019-08-25] MEDS: ALBUTEROL SULFATE 0.083% NEB 2.5 MG/3 ML AMPUL NEB SCH ×2 (08:03→15:38)
[2019-08-25 09:37] LABS: HEMATOCRIT 38.6 % (36.0-47.0); HEMOGLOBIN 13.2 g/dL (12.0-15.5); MEAN CORPUSCULAR HEMOGLOBIN 31.1 pg (27.0-33.4); MEAN CORPUSCULAR HGB CONC 34.2 g/dL (32.0-36.0); MEAN CORPUSCULAR VOLUME 91 fl (80-97); PLATELET COUNT 125 10^3/uL (150-450); RED BLOOD COUNT 4.24 10^6/uL (3.72-5.28); RED CELL DISTRIBUTION WIDTH 14.8 % (11.5-14.0); WHITE BLOOD COUNT 6.2 10^3/uL (4.0-10.5)
[2019-08-25 10:02] LABS: ALBUMIN 3.2 g/dL (3.5-5.0); ALKALINE PHOSPHATASE 203 U/L (38-126); ANION GAP 8 (5-19); ASPARTATE AMINO TRANSFERASE 220 U/L (14-36); BILIRUBIN,DIRECT 0.9 mg/dL (0.0-0.4); BILIRUBIN,TOTAL 1.5 mg/dL (0.2-1.3); BLOOD UREA NITROGEN 10 mg/dL (7-20); CALCIUM 8.5 mg/dL (8.4-10.2); CARBON DIOXIDE 27 mmol/L (22-30); CHLORIDE 99 mmol/L (98-107); GLUCOSE 117 mg/dL (75-110); POTASSIUM 3.2 mmol/L (3.6-5.0); TOTAL PROTEIN 6.1 g/dL (6.3-8.2)
[2019-08-25 10:05] LABS: VANCOMYCIN,TROUGH 6.1 ug/mL (5.0-20.0)
[2019-08-25] MEDS: DULOXETINE HCL 20 MG CAPSULE.DR PO SCH (10:15)
[2019-08-25] MEDS: FAMOTIDINE 20 MG TABLET PO SCH ×2 (10:15→21:53)
[2019-08-25] MEDS: DORZOLAMIDE HCL 2%/TIMOLOL MALEAT 0.5% OPH SOLN 10 ML OD SCH ×2 (10:16→17:51)
[2019-08-25] MEDS: ASPIRIN 81 MG TABLET, ENT COATED PO SCH (10:16)
[2019-08-25] MEDS: LIDOCAINE 5% (700 MG) TRANSDERMAL ADH..PATCH TP SCH (10:16)
[2019-08-25] MEDS ORDERED: POTASSIUM CHLORIDE 20 MEQ PACKET PO ONE ×2 (11:42→14:30)
--- NOTE | 2019-08-25 12:37 | RADIOLOGY REPORT (SQ) ---
EXAM DESCRIPTION: MRI LUMBAR SPINE WITHOUT; MRI THORACIC SPINE WITHOUT IMAGES COMPLETED DATE/TIME: 08/25/2019 11:47 am REASON FOR STUDY: multiple cmopression fractures; multiple compression fractures COMPARISON: None. TECHNIQUE: Sagittal and Axial imaging includes T1, T2, STIR and gradient echo sequences. Imaging of the thoracic and lumbar spine performed. Coronal T2/HASTE imaging. LIMITATIONS: None. FINDINGS: THORACIC SOFT TISSUES: Bilateral pleural effusions and presumed lower lobe infiltrates/edema. Incompletely a ssessed. ALIGNMENT: Kyphotic. VERTEBRAE: T10 vertebral body compression fracture with associated marrow edema and slight retropuls ion without cord compression. This is near vertebra plana configuration and is consistent with a rel atively recent fracture. Mild T3 wedging and moderate compression fracture at T12. These are chroni c. DISCS: Multilevel disc disease. No john cord compression detected. No critical central stenosis. CORD: No contour abnormalities or abnormal signal. No focal enlargement or atrophy. LUMBAR VISUALIZED UPPER ABDOMEN: Limited by motion. Large hiatal hernia. SEGMENTATION: Less well-defined disc space is considered L5-S1. Based on this, L5 is considered part ially sacralized. ALIGNMENT: Scoliosis. VERTEBRAE: Compression fractures are seen at L1, L2, L3, L4. Based on a lack of any significant rachael ow edema, these are considered chronic. POSTERIOR ELEMENTS: Multilevel facet arthropathy with associated degenerative overgrowth particularl y in the lower segments. No gross pars defect detected. HARDWARE: None in the spine. CORD AND CONUS: Normal in size and signal intensity. Conus at the appropriate level. SOFT TISSUES: Limited evaluation. No aortic aneurysm. No gross paraspinal mass. L1-L2: Posterior disc margins spurring without impingement. There is right lateral recess encroachme nt and moderate right foraminal stenosis. L2-L3: Broad disc osteophyte complex. Left facet overgrowth. Moderate central stenosis with marked left lateral recess narrowing. Marked bilateral foraminal stenosis on the left. Moderate -marked st enosis on the right. L3-L4: Broad disc bulge and facet overgrowth. Mild left lateral recess stenosis with moderate left f oraminal narrowing. L4-L5: Bilateral moderate foraminal narrowing. This looks worse on the left. L5-S1: No significant spinal stenosis or exit foraminal stenosis. LOWER THORACIC: See separate dictation same date. SACRUM: Visualized upper sacrum intact. OTHER: No other significant findings. IMPRESSION: 1. Multiple thoracic and lumbar compression fractures, most of which look chronic based on a lack of significant marrow edema. 2. T10 compression fracture with near vertebra plana configuration looks more recent. There is assoc iated marrow edema and minimal retropulsion without cord compression. Note: Segment numbering for both the thoracic and lumbar spine is based on the lowest well-defined l umbar disc labeled L5-S1. Suspect L5 transitional anatomy. Careful correlation with level is sugges frances if any operative intervention is taken. TECHNICAL DOCUMENTATION: JOB ID: [id number] 2010 [employer]- All Rights Reserved Reading location - IP/workstation name: [email or web address]
--- NOTE | 2019-08-25 17:46 | PDOC PROGRESS REPORT ---
Subjective Progress Note for:: 08/25/19 Subjective:: REUBEN CASTRO is a 88 year old female with a past medical history significant for hypothyroidism, HTN, and HLD who was admitted 08/23/2023 SIRS and found to have E. coli bacteremia. Patient was seen on afternoon rounds. She is found sitting up in recliner, comfortably, on room air. She reports that she is feeling well today. Reports mid-back pain but denies need for additional pain medication. Discussed her culture results and need for antibiotic therapy 10 7 days. She denies all symptoms including fever, chills, chest pain, palpitations, dyspnea, cough, abdominal pain, nausea, vomiting, diarrhea, dysuria, hematuria and urinary frequency. She denies any wounds. She has no questions or concerns at this time. No concerns per nursing. Reason For Visit: FEVER,HYPOXIA,PNEUMONIA Physical Exam Vital Signs: Temp Pulse Resp BP Pulse Ox 98.1 F 64 16 142/65 H 100 08/25/19 08:10 08/25/19 15:44 08/25/19 15:44 08/25/19 15:44 08/25/19 15:44 Intake & Output 08/24/19 08/25/19 08/26/19 06:59 06:59 06:59 Intake Total 4390 3003 410 Output Total 300 Balance 4390 2703 410 Weight 52.1 kg 52.1 kg General appearance: PRESENT: no acute distress, cooperative, thin, well- developed, well-nourished Head exam: PRESENT: atraumatic, normocephalic Eye exam: PRESENT: conjunctiva pink, EOMI, PERRLA. ABSENT: scleral icterus Mouth exam: PRESENT: moist, tongue midline Respiratory exam: PRESENT: clear to auscultation conner, symmetrical, unlabored. ABSENT: rales, rhonchi, wheezes Cardiovascular exam: PRESENT: RRR. ABSENT: diastolic murmur, rubs, systolic murmur Pulses: PRESENT: normal dorsalis pedis pul Vascular exam: PRESENT: normal capillary refill Extremities exam: PRESENT: full ROM. ABSENT: calf tenderness, clubbing, pedal edema Musculoskeletal exam: PRESENT: ambulatory - With front wheel walker Neurological exam: PRESENT: alert, awake, oriented to person, oriented to place, oriented to time, oriented to situation, CN II-XII grossly intact. ABSENT: m otor sensory deficit Psychiatric exam: PRESENT: appropriate affect, normal mood. ABSENT: homicidal ideation, suicidal ideation Skin exam: PRESENT: dry, intact, warm. ABSENT: cyanosis, rash Results Laboratory Results: 08/25/19 09:20 08/25/19 09:20 08/25/19 08/25/19 08/25/19 09:20 09:20 09:20 WBC 6.2 RBC 4.24 Hgb 13.2 Hct 38.6 MCV 91 MCH 31.1 MCHC 34.2 RDW 14.8 H Plt Count 125 L Sodium 133.7 L Potassium 3.2 L Chloride 99 Carbon Dioxide 27 Anion Gap 8 BUN 10 Creatinine Cancelled 0.56 Est GFR ( Amer) Cancelled > 60 Est GFR (Non-Af Amer) Cancelled Glucose 117 H Calcium 8.5 Total Bilirubin 1.5 H AST 220 H Alkaline Phosphatase 203 H Total Protein 6.1 L Albumin 3.2 L 08/23/19 06:30 Blood Blood Culture (PCR) - Final Escherichia Coli 08/23/19 06:30 Blood Blood Culture - Final Escherichia Coli 08/23/19 07:09 Blood Blood Culture - Final Escherichia Coli 08/23/19 08/23/19 06:30 06:30 Troponin I < 0.012 NT-Pro-B Natriuret Pep 263 Impressions: Chest CT 08/23/19 00:00 IMPRESSION: 1. Large hiatal hernia, similar to priors. Mild adjacent left basilar consolidation, likely atelectasis or scarring. 2. Emphysematous change. Upper lobe peripheral predominant scarring and ground-glass attenuation suggestive of nonspecific fibrotic change. Superimposed infectious/inflammatory process not entirely excluded. 3. Additional incidental findings as above. Lumbar Spine X-Ray 08/23/19 00:00 IMPRESSION: 1. Multilevel compression deformities likely involving L1- L4 al though evaluation somewhat limited secondary to thoracolumbar curvature. Chronicity uncertain secondary to lack of recent priors. MRI could be considered for further characterization of chronicity. 2. Severely decreased osseous mineralization. 3. 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 Chest X-Ray 08/23/19 06:16 IMPRESSION: 1. Large hiatal hernia. 2. Possible opacity in the left lower lung that could represent an area of pneumonia versus this being enteric contents within the patient's large hiatal hernia. Consider lateral view of the chest or CT to better evaluate. Abdomen Ultrasound 08/23/19 07:52 IMPRESSION: 1. Decompressed gallbladder with borderline thickened wall, likely secondary to decompressed state. No cholelithiasis or other evidence of acute cholecystitis. 2. No biliary ductal dilation or other evidence of acute abdominal process. Lumbar Spine MRI 08/25/19 00:00 IMPRESSION: 1. Multiple thoracic and lumbar compression fractures, most of which look chronic based on a lack of significant marrow edema. 2. T10 compression fracture with near vertebra plana configuration looks more recent. There is associated marrow edema and minimal retropulsion without cord compression. Note: Segment numbering for both the thoracic and lumbar spine is based on the lowest well-defined lumbar disc labeled L5-S1. Suspect L5 transitional anatomy. Careful correlation with level is suggested if any operative intervention is taken. Thoracic Spine MRI 08/25/19 00:00 IMPRESSION: 1. Multiple thoracic and lumbar compression fractures, most of which look chronic based on a lack of significant marrow edema. 2. T10 compression fracture with near vertebra plana configuration looks more recent. There is associated marrow edema and minimal retropulsion without cord compression. Note: Segment numbering for both the thoracic and lumbar spine is based on the lowest well-defined lumbar disc labeled L5-S1. Suspect L5 transitional anatomy. Careful correlation with level is suggested if any operative intervention is taken. Assessment and Plan - Diagnosis (1) Bacteremia Is this a current diagnosis for this admission?: Yes Plan: E. coli bacteremia (1 bottle each set) Repeat cultures negative at 24 hours Urine culture pansensitive E. coli. Continue IV Rocephin. Day #3 of 7 Vancomycin has been discontinued; received 1 days worth of therapy. (2) Pneumonia Qualifiers: Pneumonia type: due to unspecified organism Laterality: left Lung location: lower lobe of lung Qualified Code(s): J18.9 - Pneumonia, unspecified organism Is this a current diagnosis for this admission?: No Plan: Ruled out; patient remains asymptomatic, on room air, without dyspnea or cough. The CT imaging to be related to the chronic emphysema changes; bacteremia related to urinary tract.. Blood cultures show E. coli bacteremia (1 bottle each set). CT chest showed a large hiatal hernia with mild adjacent left basilar consolidation likely atelectasis versus scarring. Emphysema type changes to the periphery of the upper lobes; superimposed infectious process not excluded. Sputum cultures ordered. Patient is admitted to the medical floor on continuous cardiac telemetry. She is provided supplemental oxygen as needed to maintain saturations greater than 89%. She was empirically placed on IV azithromycin and Rocephin. Following blood culture results, and azithromycin has been discontinued, continuing increased dose Rocephin . As needed nebulizer treatments. Robitussin as needed. Incentive spirometer at bedside. (3) Sepsis Qualifiers: Sepsis type: sepsis due to unspecified organism Sepsis acute organ dysfunction status: with acute organ dysfunction Severe sepsis acute organ dysfunction type: acute liver failure Hepatic coma status: without hepatic coma Severe sepsis shock status: without septic shock Qualified Code(s): A41.9 - Sepsis, unspecified organism; R65.20 - Severe sepsis without septic shock; K72.00 - Acute and subacute hepatic failure without coma Is this a current diagnosis for this admission?: Yes Plan: Resolved. Sepsis, present on admission, secondary to E. coli bacteremia, evidenced by fever, tachypnea, hypoxia, liver dysfunction, and elevated lactic acid. Patient received adequate IV fluid resuscitation in the ED; will continue gentle IV fluids. Blood cultures show E. coli (1 bottle each set) Urine culture shows E.coli Sputum culture ordered. Antibiotics adjusted to IV Rocephin 2 g daily . (4) Elevated LFTs Is this a current diagnosis for this admission?: Yes Plan: Continue to improve. Likely secondary to sepsis. Total bili 1.7, AST 1260, ALT 439, alk phos 151 RUQ ultrasound was benign. Hepatitis panel is negative. Spoke with her primary care provider, Dr. Woodard, today. Her routine lab work from last year showed normal transaminases. Discussed with patient and daughter; does not drink alcohol, no history of alcohol dependence, and no known history of hepatitis. IV fluids as above. Cultures and antibiotics as above. Follow-up chemistries. (5) Lumbar compression fracture Qualifiers: Lumbar vertebra fracture level: unspecified lumbar vertebra Fracture healing: with routine healing Is this a current diagnosis for this admission?: Yes Plan: MRI shows chronic lumbar compression fractures; does have an acute T10 compression fracture with spinal cord compression. Multi-level compression deformities L1-L4. Analgesics as needed. Nonpharmacological interventions. Pain management has been consulted; spoke with Dr. Martinez yesterday. Appreciate his evaluation and recommendations. (6) Thoracic compression fracture Qualifiers: Encounter type: initial encounter Thoracic vertebra fracture level: T10 Qualified Code(s): S22.070A - Wedge compression fracture of T9-T10 vertebra, initial encounter for closed fracture Is this a current diagnosis for this admission?: Yes Plan: MRI revealed acute T10 compression fracture. Remaining evaluation management as above. (7) Hypothyroidism Is this a current diagnosis for this admission?: Yes Plan: Continue home dose levothyroxine (8) UTI (urinary tract infection) Is this a current diagnosis for this admission?: Yes Plan: Patient denies urinary symptoms. Urinalysis suggestive of UTI. Urine culture shows gram-negative rods. Blood cultures (1 bottle each set) positive for E. coli bacteremia. Antibiotics as above. (9) Fever Qualifiers: Fever type: unspecified Qualified Code(s): R50.9 - Fever, unspecified Is this a current diagnosis for this admission?: Yes Plan: Resolved. Secondary to #1 and 2. Tylenol as needed. Remaining management as above. - Time Time Spent with patient: 15-24 minutes Medications reviewed and adjusted accordingly: Yes Anticipated discharge: Home with Homehealth
[2019-08-26] MEDS: HEPARIN SOD (PORCINE) 5,000 UNIT/ML 1 ML VIAL SUBCUT SCH ×3 (05:39→21:35)
[2019-08-26 06:24] LABS: ALBUMIN 2.8 g/dL (3.5-5.0); ALKALINE PHOSPHATASE 169 U/L (38-126); ANION GAP 6 (5-19); ASPARTATE AMINO TRANSFERASE 87 U/L (14-36); BILIRUBIN,DIRECT 0.3 mg/dL (0.0-0.4); BILIRUBIN,TOTAL 0.9 mg/dL (0.2-1.3); BLOOD UREA NITROGEN 7 mg/dL (7-20); CALCIUM 8.2 mg/dL (8.4-10.2); CARBON DIOXIDE 27 mmol/L (22-30); CHLORIDE 101 mmol/L (98-107); GLUCOSE 83 mg/dL (75-110); TOTAL PROTEIN 5.5 g/dL (6.3-8.2)
[2019-08-26] MEDS ORDERED: POTASSIUM CHLORIDE 10 MEQ TABLET.ER PO ONE (07:00)
[2019-08-26] MEDS: CEFTRIAXONE 2 GM/D5W RTU 2 GM/50 ML RTUPB IV SCH (07:52)
[2019-08-26] MEDS: LEVOTHYROXINE SODIUM 0.05 MG TABLET PO SCH (07:52)
[2019-08-26] MEDS: POTASSIUM CHLORIDE 20 MEQ/50 ML RTU IV SCH ×2 (08:41→10:03)
[2019-08-26] MEDS: NORMAL SALINE 1000 ML 1,000 ML IV PRN ×2 (08:43→17:05)
[2019-08-26] MEDS: DORZOLAMIDE HCL 2%/TIMOLOL MALEAT 0.5% OPH SOLN 10 ML OD SCH ×2 (10:03→17:18)
[2019-08-26] MEDS: LIDOCAINE 5% (700 MG) TRANSDERMAL ADH..PATCH TP SCH (10:04)
[2019-08-26] MEDS: FAMOTIDINE 20 MG TABLET PO SCH ×2 (10:04→21:35)
[2019-08-26] MEDS: DULOXETINE HCL 20 MG CAPSULE.DR PO SCH (10:04)
[2019-08-26] MEDS: ASPIRIN 81 MG TABLET, ENT COATED PO SCH (10:04)
--- NOTE | 2019-08-26 13:50 | PDOC PROGRESS REPORT ---
Subjective Progress Note for:: 08/26/19 Subjective:: REUBEN CASTRO is a 88 year old female with a past medical history significant for hypothyroidism, HTN, and HLD who was admitted 08/23/2023 SIRS and found to have E. coli bacteremia. Patient was seen on afternoon rounds. She is found resting in bed, comfortably, on room air. She is sleeping soundly, but wakes easily when I say her name. States she is feeling well. She denies fever, chest pain, dyspnea, abdominal pain, nausea, vomiting, dysuria, hematuria and urinary frequency. She has no questions or concerns at this time. No concerns per nursing. Reason For Visit: FEVER,HYPOXIA,PNEUMONIA Physical Exam Vital Signs: Temp Pulse Resp BP Pulse Ox 97.7 F 61 18 137/60 H 99 08/26/19 11:00 08/26/19 11:00 08/26/19 11:00 08/26/19 11:00 08/26/19 11:00 Intake & Output 08/25/19 08/26/19 08/27/19 06:59 06:59 06:59 Intake Total 3003 1530 254 Output Total 300 1300 Balance 2703 230 254 Weight 52.1 kg 52.6 kg General appearance: PRESENT: no acute distress, cooperative, well-developed, well-nourished Head exam: PRESENT: atraumatic, normocephalic Eye exam: PRESENT: conjunctiva pink, EOMI, PERRLA. ABSENT: scleral icterus Mouth exam: PRESENT: moist, tongue midline Respiratory exam: PRESENT: clear to auscultation conner, symmetrical, unlabored. ABSENT: rales, rhonchi, wheezes Cardiovascular exam: PRESENT: RRR. ABSENT: diastolic murmur, rubs, systolic murmur Vascular exam: PRESENT: normal capillary refill Extremities exam: PRESENT: full ROM. ABSENT: calf tenderness, clubbing, pedal edema Musculoskeletal exam: PRESENT: ambulatory - w/ FWW Neurological exam: PRESENT: alert, awake, oriented to person, oriented to place, oriented to time, oriented to situation, CN II-XII grossly intact. ABSENT: motor sensory deficit Psychiatric exam: PRESENT: appropriate affect, normal mood. ABSENT: homicidal ideation, suicidal ideation Skin exam: PRESENT: dry, intact, warm. ABSENT: cyanosis, rash Results Laboratory Results: 08/25/19 09:20 08/26/19 05:12 08/26/19 05:12 Sodium 133.6 L Potassium 3.0 L* Chloride 101 Carbon Dioxide 27 Anion Gap 6 BUN 7 Creatinine 0.42 L Est GFR ( Amer) > 60 Glucose 83 Calcium 8.2 L Total Bilirubin 0.9 AST 87 H Alkaline Phosphatase 169 H Total Protein 5.5 L Albumin 2.8 L 08/23/19 08/23/19 06:30 06:30 Troponin I < 0.012 NT-Pro-B Natriuret Pep 263 Impressions: Chest CT 08/23/19 00:00 IMPRESSION: 1. Large hiatal hernia, similar to priors. Mild adjacent left basilar consolidation, likely atelectasis or scarring. 2. Emphysematous change. Upper lobe peripheral predominant scarring and ground-glass attenuation suggestive of nonspecific fibrotic change. Superimposed infectious/inflammatory process not entirely excluded. 3. Additional incidental findings as above. Lumbar Spine X-Ray 08/23/19 00:00 IMPRESSION: 1. Multilevel compression deformities likely involving L1- L4 although evaluation somewhat limited secondary to thoracolumbar curvature. Chronicity uncertain secondary to lack of recent priors. MRI could be considered for further characterization of chronicity. 2. Severely decreased osseous mineralization. 3. 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 Chest X-Ray 08/23/19 06:16 IMPRESSION: 1. Large hiatal hernia. 2. Possible opacity in the left lower lung that could represent an area of pneumonia versus this being enteric contents within the patient's large hiatal hernia. Consider lateral view of the chest or CT to better evaluate. Abdomen Ultrasound 08/23/19 07:52 IMPRESSION: 1. Decompressed gallbladder with borderline thickened wall, likely secondary to decompressed state. No cholelithiasis or other evidence of acute cholecystitis. 2. No biliary ductal dilation or other evidence of acute abdominal process. Lumbar Spine MRI 08/25/19 00:00 IMPRESSION: 1. Multiple thoracic and lumbar compression fractures, most of which look chronic based on a lack of significant marrow edema. 2. T10 compression fracture with near vertebra plana configuration looks more recent. There is associated marrow edema and minimal retropulsion without cord compression. Note: Segment numbering for both the thoracic and lumbar spine is based on the lowest well-defined lumbar disc labeled L5-S1. Suspect L5 transitional anatomy. Careful correlation with level is suggested if any operative intervention is taken. Thoracic Spine MRI 08/25/19 00:00 IMPRESSION: 1. Multiple thoracic and lumbar compression fractures, most of which look chronic based on a lack of significant marrow edema. 2. T10 compression fracture with near vertebra plana configuration looks more recent. There is associated marrow edema and minimal retropulsion without cord compression. Note: Segment numbering for both the thoracic and lumbar spine is based on the lowest well-defined lumbar disc labeled L5-S1. Suspect L5 transitional anatomy. Careful correlation with level is suggested if any operative intervention is taken. Assessment and Plan - Diagnosis (1) Bacteremia Is this a current diagnosis for this admission?: Yes Plan: E. coli bacteremia (1 bottle each set) Repeat cultures negative at 48 hours Urine culture pansensitive E. coli. Continue IV Rocephin. Day #4 Will transition to p.o Ceftin today. Continue for total 10 days of therapy. Vancomycin has been discontinued; received 1 days worth of therapy. (2) Pneumonia Qualifiers: Pneumonia type: due to unspecified organism Laterality: left Lung location: lower lobe of lung Qualified Code(s): J18.9 - Pneumonia, unspecified organism Is this a current diagnosis for this admission?: No Plan: Ruled out; patient remains asymptomatic, on room air, without dyspnea or cough. The CT imaging to be related to the chronic emphysema changes; bacteremia related to urinary tract.. Blood cultures show E. coli bacteremia (1 bottle each set). CT chest showed a large hiatal hernia with mild adjacent left basilar consolidation likely atelectasis versus scarring. Emphysema type changes to the periphery of the upper lobes; superimposed infectious process not excluded. Sputum cultures ordered. As needed nebulizer treatments. Robitussin as needed. Incentive spirometer at bedside. (3) Sepsis Qualifiers: Sepsis type: sepsis due to unspecified organism Sepsis acute organ dysfunction status: with acute organ dysfunction Severe sepsis acute organ dysfunction type: acute liver failure Hepatic coma status: without hepatic coma Severe sepsis shock status: without septic shock Qualified Code(s): A41.9 - Sepsis, unspecified organism; R65.20 - Severe sepsis without septic shock; K72.00 - Acute and subacute hepatic failure without coma Is this a current diagnosis for this admission?: Yes Plan: Resolved. Sepsis, present on admission, secondary to E. coli bacteremia, evidenced by fever, tachypnea, hypoxia, liver dysfunction, and elevated lactic acid. Patient received adequate IV fluid resuscitation in the ED; will continue gentle IV fluids. Blood cultures show E. coli (1 bottle each set) Urine culture shows E.coli Sputum culture ordered. Antibiotics as above. (4) Elevated LFTs Is this a current diagnosis for this admission?: Yes Plan: Continue to improve. Likely secondary to sepsis. Total bili 1.7, AST 1260, ALT 439, alk phos 151 RUQ ultrasound was benign. Hepatitis panel is negative. Spoke with her primary care provider, Dr. Wooadrd. Her routine lab work from last year showed normal transaminases. Discussed with patient and daughter; does not drink alcohol, no history of alcohol dependence, and no known history of hepatitis. IV fluids as above. Cultures and antibiotics as above. Follow-up chemistries. (5) Lumbar compression fracture Qualifiers: Lumbar vertebra fracture level: unspecified lumbar vertebra Fracture healing: with routine healing Is this a current diagnosis for this admission?: Yes Plan: MRI shows chronic lumbar compression fractures; does have an acute T10 compression fracture with spinal cord compression. Multi-level compression deformities L1-L4. Analgesics as needed. Nonpharmacological interventions. Pain management has been consulted; spoke with Dr. Martinez. Will update him on Wednesday. Appreciate his evaluation and recommendations. (6) Thoracic compression fracture Qualifiers: Encounter type: initial encounter Thoracic vertebra fracture level: T10 Qualified Code(s): S22.070A - Wedge compression fracture of T9-T10 vertebra, initial encounter for closed fracture Is this a current diagnosis for this admission?: Yes Plan: MRI revealed acute T10 compression fracture. Remaining evaluation management as above. (7) Hypothyroidism Is this a current diagnosis for this admission?: Yes Plan: Continue home dose levothyroxine (8) UTI (urinary tract infection) Is this a current diagnosis for this admission?: Yes Plan: Patient denies urinary symptoms. Urinalysis suggestive of UTI. Urine culture shows gram-negative rods. Blood cultures (1 bottle each set) positive for E. coli bacteremia. Antibiotics as above. (9) Fever Qualifiers: Fever type: unspecified Qualified Code(s): R50.9 - Fever, unspecified Is this a current diagnosis for this admission?: Yes Plan: Resolved. Secondary to #1 and 2. Tylenol as needed. Remaining management as above. (10) Hypokalemia Is this a current diagnosis for this admission?: Yes Plan: Oral and IV replacement today. Check magnesium level. Follow up chemistry. - Plan Summary Summary: Continue IVF for elevated LFTs. Check Mag, replace Potassium Discussed w/ daughter; would like Pain Management to evaluate her mother prior to discharge if at all possible. Plan to d/c home with HH services. - Time Time Spent with patient: 25-34 minutes Medications reviewed and adjusted accordingly: Yes Anticipated discharge: Home with Homehealth Within: within 72 hours
[2019-08-26] MEDS: CEFUROXIME 250 MG TABLET PO SCH (21:35)
[2019-08-27] MEDS: HEPARIN SOD (PORCINE) 5,000 UNIT/ML 1 ML VIAL SUBCUT SCH ×3 (06:16→21:58)
[2019-08-27 06:54] LABS: ALBUMIN 2.9 g/dL (3.5-5.0); ALKALINE PHOSPHATASE 159 U/L (38-126); ANION GAP 7 (5-19); ASPARTATE AMINO TRANSFERASE 57 U/L (14-36); BILIRUBIN,DIRECT 0.2 mg/dL (0.0-0.4); BILIRUBIN,TOTAL 0.8 mg/dL (0.2-1.3); BLOOD UREA NITROGEN 5 mg/dL (7-20); CALCIUM 8.2 mg/dL (8.4-10.2); CARBON DIOXIDE 27 mmol/L (22-30); CHLORIDE 99 mmol/L (98-107); GLUCOSE 81 mg/dL (75-110); POTASSIUM 3.2 mmol/L (3.6-5.0); TOTAL PROTEIN 5.7 g/dL (6.3-8.2)
[2019-08-27] MEDS: POTASSIUM CHLORIDE 10 MEQ TABLET.ER PO SCH ×2 (09:05→22:12)
[2019-08-27] MEDS: FAMOTIDINE 20 MG TABLET PO SCH ×2 (09:06→22:11)
[2019-08-27] MEDS: LEVOTHYROXINE SODIUM 0.05 MG TABLET PO SCH (09:06)
[2019-08-27] MEDS: CEFUROXIME 250 MG TABLET PO SCH ×2 (09:06→22:11)
[2019-08-27] MEDS: LIDOCAINE 5% (700 MG) TRANSDERMAL ADH..PATCH TP SCH (09:06)
[2019-08-27] MEDS: ASPIRIN 81 MG TABLET, ENT COATED PO SCH (09:06)
[2019-08-27] MEDS: DULOXETINE HCL 20 MG CAPSULE.DR PO SCH (09:06)
[2019-08-27] MEDS: DORZOLAMIDE HCL 2%/TIMOLOL MALEAT 0.5% OPH SOLN 10 ML OD SCH ×2 (09:06→17:01)
--- NOTE | 2019-08-27 14:07 | PDOC PROGRESS REPORT ---
Subjective Progress Note for:: 08/27/19 Subjective:: REUBEN CASTRO is a 88 year old female with a past medical history significant for hypothyroidism, HTN, and HLD who was admitted 08/23/2023 SIRS and found to have E. coli bacteremia. Patient was seen on afternoon rounds. She is found resting in bed, comfortably, on room air. She is sleeping soundly, but wakes easily when I say her name. States she is feeling well. She denies fever, chest pain, dyspnea, cough, abdominal pain, nausea, vomiting, dysuria, hematuria and urinary frequency. She has no questions or concerns at this time. No concerns per nursing. Reason For Visit: FEVER,HYPOXIA,PNEUMONIA Physical Exam Vital Signs: Temp Pulse Resp BP Pulse Ox 97.7 F 73 16 141/75 H 100 08/27/19 11:19 08/27/19 11:19 08/27/19 11:19 08/27/19 11:19 08/27/19 11:19 Intake & Output 08/26/19 08/27/19 08/28/19 06:59 06:59 06:59 Intake Total 1530 1012 1261 Output Total 1300 Balance 230 1012 1261 Weight 52.6 kg 50.2 kg General appearance: PRESENT: no acute distress, cooperative, thin, well- developed Head exam: PRESENT: atraumatic, normocephalic Eye exam: PRESENT: conjunctiva pink, EOMI, PERRLA. ABSENT: scleral icterus Mouth exam: PRESENT: moist, tongue midline Respiratory exam: PRESENT: clear to auscultation conner, symmetrical, unlabored, other - room air. ABSENT: rales, rhonchi, wheezes Cardiovascular exam: PRESENT: RRR, +S1, +S2. ABSENT: diastolic murmur, rubs, systolic murmur Pulses: PRESENT: normal dorsalis pedis pul Vascular exam: PRESENT: normal capillary refill Extremities exam: PRESENT: full ROM. ABSENT: calf tenderness, clubbing, pedal edema Musculoskeletal exam: PRESENT: ambulatory - w/ FWW Neurological exam: PRESENT: alert, awake, oriented to person, oriented to place, oriented to time, oriented to situation, CN II-XII grossly intact. ABSENT: motor sensory deficit Psychiatric exam: PRESENT: appropriate affect, normal mood. ABSENT: homicidal ideation, suicidal ideation Skin exam: PRESENT: dry, intact, warm. ABSENT: cyanosis, rash Results Laboratory Results: 08/25/19 09:20 08/27/19 04:53 08/26/19 08/27/19 14:35 04:53 Sodium 132.7 L Potassium 3.2 L Chloride 99 Carbon Dioxide 27 Anion Gap 7 BUN 5 L Creatinine 0.42 L Est GFR ( Amer) > 60 Glucose 81 Calcium 8.2 L Magnesium 1.8 Total Bilirubin 0.8 AST 57 H Alkaline Phosphatase 159 H Total Protein 5.7 L Albumin 2.9 L 08/23/19 09:45 Clean Catch Midstream Urine Culture - Final Escherichia Coli Klebsiella Pneumoniae 08/23/19 08/23/19 06:30 06:30 Troponin I < 0.012 NT-Pro-B Natriuret Pep 263 Impressions: Chest CT 08/23/19 00:00 IMPRESSION: 1. Large hiatal hernia, similar to priors. Mild adjacent left basilar consolidation, likely atelectasis or scarring. 2. Emphysematous change. Upper lobe peripheral predominant scarring and ground-glass attenuation suggestive of nonspecific fibrotic change. Superimposed infectious/inflammatory process not entirely excluded. 3. Additional incidental findings as above. Lumbar Spine X-Ray 08/23/19 00:00 IMPRESSION: 1. Multilevel compression deformities likely involving L1- L4 although evaluation somewhat limited secondary to thoracolumbar curvature. Chronicity uncertain secondary to lack of recent priors. MRI could be considered for further characterization of chronicity. 2. Severely decreased osseous mineralization. 3. 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 Chest X-Ray 08/23/19 06:16 IMPRESSION: 1. Large hiatal hernia. 2. Possible opacity in the left lower lung that could represent an area of pneumonia versus this being enteric contents within the patient's large hiatal hernia. Consider lateral view of the chest or CT to better evaluate. Abdomen Ultrasound 08/23/19 07:52 IMPRESSION: 1. Decompressed gallbladder with borderline thickened wall, likely secondary to decompressed state. No cholelithiasis or other evidence of acute cholecystitis. 2. No biliary ductal dilation or other evidence of acute abdominal process. Lumbar Spine MRI 08/25/19 00:00 IMPRESSION: 1. Multiple thoracic and lumbar compression fractures, most of which look chronic based on a lack of significant marrow edema. 2. T10 compression fracture with near vertebra plana configuration looks more recent. There is associated marrow edema and minimal retropulsion without cord compression. Note: Segment numbering for both the thoracic and lumbar spine is based on the lowest well-defined lumbar disc labeled L5-S1. Suspect L5 transitional anatomy. Careful correlation with level is suggested if any operative intervention is taken. Thoracic Spine MRI 08/25/19 00:00 IMPRESSION: 1. Multiple thoracic and lumbar compression fractures, most of which look chronic based on a lack of significant marrow edema. 2. T10 compression fracture with near vertebra plana configuration looks more recent. There is associated marrow edema and minimal retropulsion without cord compression. Note: Segment numbering for both the thoracic and lumbar spine is based on the lowest well-defined lumbar disc labeled L5-S1. Suspect L5 transitional anatomy. Careful correlation with level is suggested if any operative intervention is taken. Assessment and Plan - Diagnosis (1) Bacteremia Is this a current diagnosis for this admission?: Yes Plan: E. coli bacteremia (1 bottle each set) Repeat cultures negative at 72 hours Urine culture pansensitive E. coli. Continue IV Rocephin x4 days Have transitioned to p.o Ceftin. Continue for total 10 days of therapy. Day #5/10 Vancomycin has been discontinued; received 1 days worth of therapy. (2) Pneumonia Qualifiers: Pneumonia type: due to unspecified organism Laterality: left Lung location: lower lobe of lung Qualified Code(s): J18.9 - Pneumonia, unspecified organism Is this a current diagnosis for this admission?: No Plan: Ruled out; patient remains asymptomatic, on room air, without dyspnea or cough. The CT imaging to be related to the chronic emphysema changes; bacteremia related to urinary tract.. Blood cultures show E. coli bacteremia (1 bottle each set). CT chest showed a large hiatal hernia with mild adjacent left basilar consolidation likely atelectasis versus scarring. Emphysema type changes to the periphery of the upper lobes; superimposed infectious process not excluded. Sputum cultures ordered. As needed nebulizer treatments. Robitussin as needed. Incentive spirometer at bedside. (3) Sepsis Qualifiers: Sepsis type: sepsis due to unspecified organism Sepsis acute organ dysfunction status: with acute organ dysfunction Severe sepsis acute organ dysfunction type: acute liver failure Hepatic coma status: without hepatic coma Severe sepsis shock status: without septic shock Qualified Code(s): A41.9 - Sepsis, unspecified organism; R65.20 - Severe sepsis without septic shock; K72.00 - Acute and subacute hepatic failure without coma Is this a current diagnosis for this admission?: Yes Plan: Resolved. Sepsis, present on admission, secondary to E. coli bacteremia, evidenced by fever, tachypnea, hypoxia, liver dysfunction, and elevated lactic acid. Patient received adequate IV fluid resuscitation in the ED; will continue gentle IV fluids. Blood cultures show E. coli (1 bottle each set) Urine culture shows E.coli Sputum culture ordered. Antibiotics as above. (4) Elevated LFTs Is this a current diagnosis for this admission?: Yes Plan: Continue to improve. Likely secondary to sepsis. At admission Total bili 1.7, AST 1260, ALT 439, alk phos 151 RUQ ultrasound was benign. Hepatitis panel is negative. Spoke with her primary care provider, Dr. Woodard. Her routine lab work from last year showed normal transaminases. Discussed with patient and daughter; does not drink alcohol, no history of alcohol dependence, and no known history of hepatitis. Resolution of sepsis as above. Follow-up chemistries. (5) Lumbar compression fracture Qualifiers: Lumbar vertebra fracture level: unspecified lumbar vertebra Fracture healing: with routine healing Is this a current diagnosis for this admission?: Yes Plan: MRI shows chronic lumbar compression fractures; does have an acute T10 compression fracture with spinal cord compression. Multi-level compression deformities L1-L4. Analgesics as needed. Nonpharmacological interventions. Pain management has been consulted; spoke with Dr. Martinez. Will update him on Wednesday. Appreciate his evaluation and recommendations. (6) Thoracic compression fracture Qualifiers: Encounter type: initial encounter Thoracic vertebra fracture level: T10 Qualified Code(s): S22.070A - Wedge compression fracture of T9-T10 vertebra, initial encounter for closed fracture Is this a current diagnosis for this admission?: Yes Plan: MRI revealed acute T10 compression fracture. Remaining evaluation management as above. (7) Hypothyroidism Is this a current diagnosis for this admission?: Yes Plan: Continue home dose levothyroxine (8) UTI (urinary tract infection) Is this a current diagnosis for this admission?: Yes Plan: Patient denies urinary symptoms. Urinalysis suggestive of UTI. Urine culture shows e. coli and klebsiella. Both sensitive to cephalosporins. Blood cultures (1 bottle each set) positive for E. coli bacteremia. Antibiotics as above. (9) Fever Qualifiers: Fever type: unspecified Qualified Code(s): R50.9 - Fever, unspecified Is this a current diagnosis for this admission?: Yes Plan: Resolved. Secondary to #1 and 2. Tylenol as needed. Remaining management as above. (10) Hypokalemia Is this a current diagnosis for this admission?: Yes Plan: Oral and IV replacement as needed Magnesium 1.8 Follow up chemistry. - Plan Summary Summary: Discussed w/ daughter; would like Pain Management to evaluate her mother prior to discharge if at all possible. Plan to d/c home with services. - Time Time Spent with patient: 15-24 minutes
[2019-08-28] MEDS: HEPARIN SOD (PORCINE) 5,000 UNIT/ML 1 ML VIAL SUBCUT SCH ×2 (05:09→13:47)
[2019-08-28 05:42] LABS: HEMATOCRIT 38.8 % (36.0-47.0); HEMOGLOBIN 13.4 g/dL (12.0-15.5); MEAN CORPUSCULAR HGB CONC 34.5 g/dL (32.0-36.0); MEAN CORPUSCULAR VOLUME 90 fl (80-97); PLATELET COUNT 148 10^3/uL (150-450); RED BLOOD COUNT 4.31 10^6/uL (3.72-5.28); RED CELL DISTRIBUTION WIDTH 14.8 % (11.5-14.0); WHITE BLOOD COUNT 4.6 10^3/uL (4.0-10.5)
[2019-08-28 06:04] LABS: ALBUMIN 2.9 g/dL (3.5-5.0); ALKALINE PHOSPHATASE 147 U/L (38-126); ANION GAP 5 (5-19); ASPARTATE AMINO TRANSFERASE 70 U/L (14-36); BILIRUBIN,DIRECT 0.1 mg/dL (0.0-0.4); BILIRUBIN,TOTAL 0.8 mg/dL (0.2-1.3); BLOOD UREA NITROGEN 6 mg/dL (7-20); CALCIUM 8.7 mg/dL (8.4-10.2); CARBON DIOXIDE 28 mmol/L (22-30); CHLORIDE 99 mmol/L (98-107); GLUCOSE 84 mg/dL (75-110); TOTAL PROTEIN 5.8 g/dL (6.3-8.2)
[2019-08-28 06:25] LABS: POTASSIUM 4.2 mmol/L (3.6-5.0)
[2019-08-28] MEDS: LEVOTHYROXINE SODIUM 0.05 MG TABLET PO SCH (07:39)
--- NOTE | 2019-08-28 08:51 | Progress Note ---
Provider Note Provider Note: Called [facility] and spoke with clinical staff member, Suni. Ms. Velazquez is now medically stable for discharge. Requested that Dr. Martinez, or one of his colleagues, follow up on the consult placed last week regarding her compression fractures and back pain. Thoracic and Lumbar MRI revealed acute T10 compression fracture with cord compression.
[2019-08-28] MEDS: FAMOTIDINE 20 MG TABLET PO SCH (10:42)
[2019-08-28] MEDS: ASPIRIN 81 MG TABLET, ENT COATED PO SCH (10:42)
[2019-08-28] MEDS: LIDOCAINE 5% (700 MG) TRANSDERMAL ADH..PATCH TP SCH (10:42)
[2019-08-28] MEDS: CEFUROXIME 250 MG TABLET PO SCH (10:42)
[2019-08-28] MEDS: DORZOLAMIDE HCL 2%/TIMOLOL MALEAT 0.5% OPH SOLN 10 ML OD SCH (10:42)
[2019-08-28] MEDS: DULOXETINE HCL 20 MG CAPSULE.DR PO SCH (10:42)
--- NOTE | 2019-08-28 16:04 | PDOC DISCHARGE SUMMARY ---
Impression - Admit/DC Date/PCP Admission Date/Primary Care Provider: 08/23/19 10:45 RONALD AYALA MD Discharge Date: 08/28/19 - Discharge Diagnosis (1) Bacteremia Is this a current diagnosis for this admission?: Yes (2) Pneumonia Is this a current diagnosis for this admission?: No (3) Sepsis Is this a current diagnosis for this admission?: Yes (4) Elevated LFTs Is this a current diagnosis for this admission?: Yes (5) Lumbar compression fracture Is this a current diagnosis for this admission?: Yes (6) Thoracic compression fracture Is this a current diagnosis for this admission?: Yes (7) Hypothyroidism Is this a current diagnosis for this admission?: Yes (8) UTI (urinary tract infection) Is this a current diagnosis for this admission?: Yes (9) Fever Is this a current diagnosis for this admission?: Yes (10) Hypokalemia Is this a current diagnosis for this admission?: Yes (11) Hyponatremia Is this a current diagnosis for this admission?: Yes (12) Tachycardia Is this a current diagnosis for this admission?: Yes - Additional Information Resuscitation Status: Do Not Resuscitate Discharge Diet: Regular Discharge Activity: Activity As Tolerated, Balance Activity w/Rest, Slowly Increase Activity Referrals: CARLOTA FARFAN FNP-C [NURSE PRACTITIONER] - 08/31/19 10:45 am MARIA ALEJANDRA CHRISTINE MD [ACTIVE STAFF] - 08/30/19 11:00 am () Prescriptions: Cefuroxime Axetil [Ceftin 500 mg Tablet] 1 tab PO BID #20 tablet Lidocaine [Lidoderm 5% (700 mg) Transdermal Patch] 1 patch TP DAILY #30 adh..patch Home Medications: Aspirin [Ecotrin 81 mg EC Tablet] 81 mg PO DAILY 03/28/14 Brimonidine Tartrate [Alphagan P] 1 drop OD Q8 03/28/14 Dorzolamide HCl/Timolol Maleat [Cosopt Oph Soln 10 ml] 1 drop OD BID 03/28/14 Levothyroxine Sodium [Synthroid] 50 mcg PO QAM 03/28/14 Duloxetine HCl [Cymbalta 20 mg Capsule.dr] 20 mg PO DAILY 08/23/19 Acetaminophen [Tylenol 325 mg Tablet] 650 mg PO Q4HP PRN tablet 08/28/19 Cefuroxime Axetil [Ceftin 500 mg Tablet] 1 tab PO BID #20 tablet 08/28/19 Lidocaine [Lidoderm 5% (700 mg) Transdermal Patch] 1 patch TP DAILY #30 adh..patch 08/28/19 History of Present Illiness History of Present Illness: REUBEN CASTRO is a 88 year old female with a past medical history significant for hypothyroidism, HTN, and HLD who presented to the emergency department via EMS with a complaint of 1 week of intermittent fevers (102 upon EMS arrival), nonproductive cough, and generalized weakness. Spoke with the patient's daughter who reports that she has had slight increase in forgetfulness. Daughter also reports that she has had severe lumbar back pain for the last 2 months; recent x-ray imaging done at her primary care provider's office revealed multiple compression fractures. Due to the COVID precautions, they have not been able to follow-up with orthopedics or pain management for further evaluation. Otherwise, the daughter has not noted any changes to the patient's health. Evaluation in the emergency department revealed temperature 99.9 (having received Tylenol by EMS), relative tachycardia with a heart rate of 91 tachypnea (RR 28), mild hypoxia on room air (per nursing report 87% although not documented), CBC showed normal WBCs but with elevated neutrophils, and a chemistry showing mild hypokalemia with elevated LFTs (total bili 1.7, AST 1260, ALT 439, alk phos 151) lactic acid elevated to 3.3, negative troponin, negative proBNP, unremarkable urinalysis, and negative toxicology screening including serum EtOH. Chest x-ray revealed a large hiatal hernia with possible left lower lung opacity, although difficult to differentiate due to the hernia with recommendations for CT imaging. Based upon these findings, patient was provided IV fluids, IV Rocephin and azithromycin and subsequently referred to the hospitalist service for further evaluation and management of the above-stated complaints findings. Hospital Course Hospital Course: (1) Bacteremia E. coli bacteremia (1 bottle each set) Repeat cultures negative at 4 days Urine culture pansensitive E. coli. Received IV Rocephin x4 days Have transitioned to p.o Ceftin to continue at discharge for an additional 10 days; 14 days of total therapy. Vancomycin has been discontinued; received 1 days worth of therapy. (2) Pneumonia Ruled out; patient remains asymptomatic, on room air, without dyspnea or cough. The CT imaging to be related to the chronic emphysema changes; bacteremia related to urinary tract.. Blood cultures show E. coli bacteremia (1 bottle each set). CT chest showed a large hiatal hernia with mild adjacent left basilar consolidation likely atelectasis versus scarring. Emphysema type changes to the periphery of the upper lobes; superimposed infectious process not excluded. Sputum cultures ordered. As needed nebulizer treatments. Robitussin as needed. Incentive spirometer at bedside. (3) Sepsis Resolved. Sepsis, present on admission, secondary to E. coli bacteremia, evidenced by fever, tachypnea, hypoxia, liver dysfunction, and elevated lactic acid. Patient received adequate IV fluid resuscitation in the ED; will continue gentle IV fluids. Blood cultures show E. coli (1 bottle each set) Urine culture shows E.coli and klebsiella Sputum culture were not obtained; patient did not develop a productive cough. Antibiotics as above. (4) Elevated LFTs Greatly improved. Likely secondary to sepsis. At Admission: Total bili 1.7, AST 1260, ALT 439, alk phos 151 At Discharge: Total bili 0.8, AST 70, ALT 151, alk phos 147 RUQ ultrasound was benign. Hepatitis panel is negative. Spoke with her primary care provider, Dr. Woodard. Her routine lab work from last year showed normal transaminases. Discussed with patient and daughter; does not drink alcohol, no history of alcohol dependence, and no known history of hepatitis. Resolution of sepsis as above. Recommend follow up LFTs in 2 weeks (after completing course of antibiotics). (5) Lumbar compression fracture MRI shows chronic lumbar compression fractures; does have an acute T10 compression fracture with spinal cord compression. Multi-level compression deformities L1-L4. Analgesics as needed. Nonpharmacological interventions. Pain management has been consulted; spoke with Dr. Martinez and Dagoberto Farfan, CHUCKY. Follow up with Ms. Farfan on 08/31/19. Continue Lidoderm patches and prn Tylenol. (6) Thoracic compression fracture MRI revealed acute T10 compression fracture. Remaining evaluation and management as above. (7) Hypothyroidism TSH 2.80 Continue home dose levothyroxine (8) UTI (urinary tract infection) Patient denies urinary symptoms. Urinalysis suggestive of UTI. Urine culture shows e. coli and klebsiella. Both sensitive to cephalosporins. Blood cultures (1 bottle each set) positive for E. coli bacteremia. Antibiotics as above. (9) Fever Resolved. Secondary to #1 and 2. Tylenol as needed. Remaining management as above. (10) Hypokalemia Resolved. Oral and IV replacement as needed Magnesium 1.8 Follow up chemistry. (11) Hyponatremia Secondary to poor p.o. intake. Stable at 132. Urine Osmo 439, Urine Na 162 TSH 2.80, AM Cortisol 12.3 Liberalize dietary sodium. Recommend follow up BMP in 7-10 days. (12) Tachycardia Resolved. Unclear etioogy Noted to have a 40 minute period of Sinus tachycardia this morning (HR 120-140) that resolved spontaneously. BP, RR, SpO2 remained stable. Patient denies symptoms; specifically palpitations, chest pain, and dyspnea. Negative Troponin x2 Physical Exam Vital Signs: Temp Pulse Resp BP Pulse Ox 98.3 F 75 16 130/67 H 98 08/28/19 11:08 08/28/19 11:08 08/28/19 11:08 08/28/19 11:08 08/28/19 11:08 Intake & Output 08/27/19 08/28/19 08/29/19 06:59 06:59 06:59 Intake Total 1012 1497 120 Output Total 350 Balance 1012 1497 -230 Weight 50.2 kg 48.5 kg General appearance: PRESENT: no acute distress, cooperative, thin, well- developed Head exam: PRESENT: atraumatic, normocephalic Eye exam: PRESENT: conjunctiva pink, EOMI, PERRLA. ABSENT: scleral icterus Mouth exam: PRESENT: moist, tongue midline Respiratory exam: PRESENT: clear to auscultation conner, symmetrical, unlabored. ABSENT: rales, rhonchi, wheezes Cardiovascular exam: PRESENT: RRR, +S1, +S2. ABSENT: diastolic murmur, rubs, systolic murmur Vascular exam: PRESENT: normal capillary refill Extremities exam: PRESENT: full ROM. ABSENT: calf tenderness, clubbing, pedal edema Musculoskeletal exam: PRESENT: ambulatory - w/ FWW Neurological exam: PRESENT: alert, awake, oriented to person, oriented to place, oriented to time, oriented to situation, CN II-XII grossly intact, other - Intermittent forgetfulness and mild confusion. ABSENT: motor sensory deficit Psychiatric exam: PRESENT: appropriate affect, normal mood. ABSENT: homicidal ideation, suicidal ideation Skin exam: PRESENT: dry, intact, warm. ABSENT: cyanosis, rash Results Laboratory Results: WBC 4.6 10^3/uL (4.0-10.5) 08/28/19 04:47 RBC 4.31 10^6/uL (3.72-5.28) 08/28/19 04:47 Hgb 13.4 g/dL (12.0-15.5) 08/28/19 04:47 Hct 38.8 % (36.0-47.0) 08/28/19 04:47 MCV 90 fl (80-97) 08/28/19 04:47 MCH 31.0 pg (27.0-33.4) 08/28/19 04:47 MCHC 34.5 g/dL (32.0-36.0) 08/28/19 04:47 RDW 14.8 % (11.5-14.0) H 08/28/19 04:47 Plt Count 148 10^3/uL (150-450) L 08/28/19 04:47 Lymph % (Auto) Not Reportable 08/23/19 06:30 Walker % (Auto) Not Reportable 08/23/19 06:30 Eos % (Auto) Not Reportable 08/23/19 06:30 Baso % (Auto) Not Reportable 08/23/19 06:30 Absolute Neuts (auto) Not Reportable 08/23/19 06:30 Absolute Lymphs (auto) Not Reportable 08/23/19 06:30 Absolute Monos (auto) Not Reportable 08/23/19 06:30 Absolute Eos (auto) Not Reportable 08/23/19 06:30 Absolute Basos (auto) Not Reportable 08/23/19 06:30 Total Counted 100 08/23/19 06:30 Seg Neutrophils % Not Reportable 08/23/19 06:30 Seg Neuts % (Manual) 88 % (42-78) H 08/23/19 06:30 Band Neutrophils % 2 % (3-5) L 08/23/19 06:30 Lymphocytes % (Manual) 6 % (13-45) L 08/23/19 06:30 Monocytes % (Manual) 3 % (3-13) 08/23/19 06:30 Eosinophils % (Manual) 1 % (0-6) 08/23/19 06:30 Basophils % (Manual) 0 % (0-2) 08/23/19 06:30 Abs Neuts (Manual) 4.3 10^3/uL (1.7-8.2) 08/23/19 06:30 Abs Lymphs (Manual) 0.3 10^3/uL (0.5-4.7) L 08/23/19 06:30 Abs Monocytes (Manual) 0.1 10^3/uL (0.1-1.4) 08/23/19 06:30 Absolute Eos (Manual) 0.0 10^3/uL (0.0-0.6) 08/23/19 06:30 Abs Basophils (Manual) 0.0 10^3/uL (0.0-0.2) 08/23/19 06:30 Clumped Platelets PRESENT 08/23/19 06:30 Platelet Comment ADEQUATE 08/23/19 06:30 Anisocytosis SLIGHT 08/23/19 06:30 PT 14.8 SEC (11.4-15.4) 08/23/19 06:30 INR 1.15 08/23/19 06:30 VBG pH 7.39 (7.30-7.42) 08/23/19 06:30 VBG pCO2 41.9 mmHg (35-63) 08/23/19 06:30 VBG HCO3 25.0 mmol/L (20-32) 08/23/19 06:30 VBG Base Excess 0.1 mmol/L 08/23/19 06:30 Sodium 132.0 mmol/L (137-145) L 08/28/19 04:47 Potassium 4.2 mmol/L (3.6-5.0) D 08/28/19 04:47 Chloride 99 mmol/L (98-107) 08/28/19 04:47 Carbon Dioxide 28 mmol/L (22-30) 08/28/19 04:47 Anion Gap 5 (5-19) 08/28/19 04:47 BUN 6 mg/dL (7-20) L 08/28/19 04:47 Creatinine 0.45 mg/dL (0.52-1.25) L 08/28/19 04:47 Est GFR ( Amer) > 60 (>60) 08/28/19 04:47 Est GFR (Non-Af Amer) Cancelled 08/25/19 09:20 Est GFR (MDRD) Non-Af > 60 (>60) 08/28/19 04:47 Glucose 84 mg/dL (75-110) 08/28/19 04:47 Serum Osmolality 273 mOsm/kg (275-301) L 08/28/19 04:47 Lactic Acid 1.0 mmol/L (0.7-2.1) 08/24/19 05:28 Calcium 8.7 mg/dL (8.4-10.2) 08/28/19 04:47 Magnesium 1.8 mg/dL (1.6-2.3) 08/26/19 14:35 Total Bilirubin 0.8 mg/dL (0.2-1.3) 08/28/19 04:47 Direct Bilirubin 0.1 mg/dL (0.0-0.4) 08/28/19 04:47 Neonat Total Bilirubin Not Reportable 08/28/19 04:47 Neonat Direct Bilirubin Not Reportable 08/28/19 04:47 Neonat Indirect Bili Not Reportable 08/28/19 04:47 AST 70 U/L (14-36) H 08/28/19 04:47 ALT 151 U/L (<35) H 08/28/19 04:47 Alkaline Phosphatase 147 U/L (38-126) H 08/28/19 04:47 Creatine Kinase 21 U/L (30-135) L 08/28/19 12:20 Troponin I < 0.012 ng/mL 08/28/19 12:20 NT-Pro-B Natriuret Pep 263 pg/mL (<450) 08/23/19 06:30 Total Protein 5.8 g/dL (6.3-8.2) L 08/28/19 04:47 Albumin 2.9 g/dL (3.5-5.0) L 08/28/19 04:47 Lipase 90.1 U/L (23-300) 08/23/19 19:55 EGFR Cancelled 08/25/19 09:20 TSH 2.80 uIU/mL (0.47-4.68) 08/28/19 04:47 Cortisol AM Sample 12.30 ug/dL (4.46-22.7) 08/28/19 04:47 Urine Color YELLOW 08/23/19 09:45 Urine Appearance SLIGHTLY-CLOUDY 08/23/19 09:45 Urine pH 6.0 (5.0-9.0) 08/23/19 09:45 Ur Specific [place] 1.010 08/23/19 09:45 Urine Protein 30 mg/dL (NEGATIVE) H 08/23/19 09:45 Urine Glucose (UA) NEGATIVE mg/dL (NEGATIVE) 08/23/19 09:45 Urine Ketones NEGATIVE mg/dL (NEGATIVE) 08/23/19 09:45 Urine Blood MODERATE (NEGATIVE) H 08/23/19 09:45 Urine Nitrite (Reflex) NEGATIVE (NEGATIVE) 08/23/19 09:45 Urine Bilirubin NEGATIVE (NEGATIVE) 08/23/19 09:45 Urine Urobilinogen 4.0 mg/dL (<2.0) H 08/23/19 09:45 Leukocyte Esterase Rfl TRACE (NEGATIVE) H 08/23/19 09:45 Urine RBC (Auto) 2 /HPF 08/23/19 09:45 Urine Bacteria (Auto) 2+ /HPF 08/23/19 09:45 Urine WBC (Reflex) 9 /HPF 08/23/19 09:45 Squamous Epi Cells Auto 1 /HPF 08/23/19 09:45 Urine Mucus (Auto) OCC /LPF 08/23/19 09:45 Urine Osmolality 439 mOsm/kg (300-900) 08/28/19 09:00 Urine Sodium 162 mmol/L (30-90) H 08/28/19 09:00 Urine Ascorbic Acid NEGATIVE (NEGATIVE) 08/23/19 09:45 Time Trough Drawn 91908/25/19 09:20 Vancomycin Trough 6.1 ug/mL (5.0-20.0) 08/25/19 09:20 Urine Opiates Screen NEGATIVE 08/23/19 09:45 Urine Methadone Screen NEGATIVE 08/23/19 09:45 Acetaminophen < 10 ug/mL (10-30) L 08/23/19 06:30 Ur Barbiturates Screen NEGATIVE 08/23/19 09:45 Ur Phencyclidine Scrn NEGATIVE 08/23/19 09:45 Ur Amphetamines Screen NEGATIVE 08/23/19 09:45 U Benzodiazepines Scrn NEGATIVE 08/23/19 09:45 Urine Cocaine Screen NEGATIVE 08/23/19 09:45 U Marijuana (THC) Screen NEGATIVE 08/23/19 09:45 Serum Alcohol < 10 mg/dL (NONE DETECTED) 08/23/19 06:30 Hepatitis A IgM Ab Negative (Negative) 08/23/19 10:30 Hep Bs Antigen Negative (Negative) 08/23/19 10:30 Hep B Core IgM Ab Negative (Negative) 08/23/19 10:30 Hepatitis C Antibody <0.1 s/co ratio (0.0-0.9) 08/23/19 10:30 SARS-CoV-2 (PCR) NEGATIVE (NEGATIVE) 08/23/19 08:20 08/23/19 08/23/19 08/28/19 06:30 06:30 12:20 Troponin I < 0.012 < 0.012 NT-Pro-B Natriuret Pep 263 Impressions: Chest CT 08/23/19 00:00 IMPRESSION: 1. Large hiatal hernia, similar to priors. Mild adjacent left basilar consolidation, likely atelectasis or scarring. 2. Emphysematous change. Upper lobe peripheral predominant scarring and ground-glass attenuation suggestive of nonspecific fibrotic change. Superimposed infectious/inflammatory process not entirely excluded. 3. Additional incidental findings as above. Lumbar Spine X-Ray 08/23/19 00:00 IMPRESSION: 1. Multilevel compression deformities likely involving L1- L4 although evaluation somewhat limited secondary to thoracolumbar curvature. Chronicity uncertain secondary to lack of recent priors. MRI could be considered for further characterization of chronicity. 2. Severely decreased osseous mineralization. 3. 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 Chest X-Ray 08/23/19 06:16 IMPRESSION: 1. Large hiatal hernia. 2. Possible opacity in the left lower lung that could represent an area of pneumonia versus this being enteric contents within the patient's large hiatal hernia. Consider lateral view of the chest or CT to better evaluate. Abdomen Ultrasound 08/23/19 07:52 IMPRESSION: 1. Decompressed gallbladder with borderline thickened wall, likely secondary to decompressed state. No cholelithiasis or other evidence of acute cholecystitis. 2. No biliary ductal dilation or other evidence of acute abdominal process. Lumbar Spine MRI 08/25/19 00:00 IMPRESSION: 1. Multiple thoracic and lumbar compression fractures, most of which look chronic based on a lack of significant marrow edema. 2. T10 compression fracture with near vertebra plana configuration looks more recent. There is associated marrow edema and minimal retropulsion without cord compression. Note: Segment numbering for both the thoracic and lumbar spine is based on the lowest well-defined lumbar disc labeled L5-S1. Suspect L5 transitional anatomy. Careful correlation with level is suggested if any operative intervention is taken. Thoracic Spine MRI 08/25/19 00:00 IMPRESSION: 1. Multiple thoracic and lumbar compression fractures, most of which look chronic based on a lack of significant marrow edema. 2. T10 compression fracture with near vertebra plana configuration looks more recent. There is associated marrow edema and minimal retropulsion without cord compression. Note: Segment numbering for both the thoracic and lumbar spine is based on the lowest well-defined lumbar disc labeled L5-S1. Suspect L5 transitional anatomy. Careful correlation with level is suggested if any operative intervention is taken. Plan Plan of Treatment: Patient is discharged home, in stable condition, to the care of family members with home health services. Follow-up with Dr. Christine 08/30/19 at 11:00. Follow up with Pain Management, Ms. Carlota Farfan NP, on 08/31/19 at 10:45 Complete full course of antibiotic therapy. Take other medication as prescribed. Eat a heart healthy diet. Do NOT smoke. Return to emergency department as needed for concerning symptoms. Time Spent: Greater than 30 Minutes Stroke Is this a Stroke Patient?: No Acute Heart Failure - Is this a Heart Failure Patient?: No
[2019-08-28 16:21] VITALS: BP 112/58
== END 2019-08-28 17:34 | disposition home health service (06) | DRG 871 ==
LOC: ER 05:48 → EH 10:45 → 4N 11:40
PROVIDERS: ADMIT Hospitalist; ATTEND Registered Nurse
DX: A41.51 Sepsis due to Escherichia coli [E. coli] (principal); K72.00 Acute and subacute hepatic failure without coma; S22.070A Wedge compression fracture of T9-T10 vertebra, initial encounter for closed fracture; N39.0 Urinary tract infection, site not specified; M48.56XA Collapsed vertebra, not elsewhere classified, lumbar region, initial encounter for fracture; E87.1 Hypo-osmolality and hyponatremia; E03.9 Hypothyroidism, unspecified; E87.6 Hypokalemia; I10 Essential (primary) hypertension; R65.20 Severe sepsis without septic shock; E78.5 Hyperlipidemia, unspecified; K44.9 Diaphragmatic hernia without obstruction or gangrene; J43.9 Emphysema, unspecified; B96.1 Klebsiella pneumoniae [K. pneumoniae] as the cause of diseases classified elsewhere; F32.9 Major depressive disorder, single episode, unspecified; E78.00 Pure hypercholesterolemia, unspecified; Z66 Do not resuscitate; Z79.899 Other long term (current) drug therapy; Z79.890 Hormone replacement therapy; Z79.82 Long term (current) use of aspirin; Z88.1 Allergy status to other antibiotic agents; Z03.818 Encounter for observation for suspected exposure to other biological agents ruled out
CPT/HCPCS: 36415; 71045; 71250; 72110; 72146; 72148; 76705; 80053; 80074; 80202; 80307; 81001; 82533; 82550; 82803; 83605; 83690; 83735; 83880; 83930; 83935; 84300; 84443; 84484; 85025; 85027; 85610; 87040; 87077; 87086; 87088; 87150; 87186; 87635; 93005; 93010; 94640; 94799; 96361; 96365; 96367; 99285; C9803; J0456; J0696; J1644; J3370; J3480; J3490; J7030; J7060

== ENCOUNTER 2020-02-22 09:44 | Emergency (ER) | payer MEDICARE, OTHER ==
[2020-02-22] MEDS ORDERED: LIDOCAINE 1% INJ-PF (10 MG/ML) 30 ML SDV INJ ONE (10:01)
[2020-02-22] MEDS ORDERED: DIPH/PERTUSS(ACELL)/TETANUS VAC/PF 0.5 ML SYR (>=10YO) IM ONE (10:04)
--- NOTE | 2020-02-22 10:09 | ER Document Report ---
ED Medical Screen (RME) - General Chief Complaint: Fall Injury Stated Complaint: FALL/LACERATION BY LEFT EYEBROW Time Seen by Provider: 02/22/20 09:58 Primary Care Provider: MARIA ALEJANDRA SPEAR MD [Primary Care Provider] - Follow up as needed TRAVEL OUTSIDE OF THE [place] IN LAST 30 DAYS: No - HPI Notes: Patient is a 89 y/o female with a hx of hypothyroid who presents s/p fall that occurred just prior to arrival. Patient states she lost her balance in the bathroom and hit her head on the tile floor. She states she has had both hips replaced and one leg is slightly shorter than the other which has been causing her balance issues. Her only complaint is a laceration to her forehead. She denies loss of consciousness, vomiting, or any other injury. She denies any preceding symptoms such as lightheadedness or dizziness. She is not currently taking any blood thinners. She is unsure when her last tetanus shot was. - Related Data Allergies/Adverse Reactions: bacitracin [From Neosporin] Allergy (Severe, Verified 05/02/15 14:30) gramicidin D [From Neosporin] Allergy (Severe, Verified 05/02/15 14:30) neomycin sulfate [From Neosporin] Allergy (Severe, Verified 05/02/15 14:30) polymyxin B [From Neosporin] Allergy (Severe, Verified 05/02/15 14:30) Home Medications: synthroid Past Medical History - Social History Chew tobacco use (# tins/day): No Frequency of alcohol use: None Drug Abuse: None - Past Medical History Cardiac Medical History: Reports: Hx Hypercholesterolemia, Hx Hypertension Denies: Hx Atrial Fibrillation, Hx Congestive Heart Failure, Hx Coronary Artery Disease, Hx Heart Attack, Hx Peripheral Vascular Disease, Hx Heart Murmur Pulmonary Medical History: Denies: Hx Asthma Neurological Medical History: Denies: Hx Cerebrovascular Accident, Hx Seizures Endocrine Medical History: Reports: Hx Hypothyroidism. Denies: Hx Graves' Disease, Hx Hyperthyroidism Renal/ Medical History: Reports: Hx Ovarian Cysts - unilat S&O at age 26 years. Denies: Hx End Stage Renal Disease, Hx Kidney Stones, Hx Peritoneal Dialysis, Hx Pelvic Inflammatory Disease Malignancy Medical History: Denies: Hx Breast Cancer, Hx Cervical Cancer, Hx Leukemia, Hx Ovarian Cancer GI Medical History: Denies: Hx Hepatitis, Hx Hiatal Hernia, Hx Ulcer Musculoskeltal Medical History: Reports Hx Arthritis, Denies Hx Fibromyalgia, Denies Hx Systemic Lupus Erythematosus Psychiatric Medical History: Reports: Hx Depression Denies: Hx Bipolar Disorder, Hx Post Traumatic Stress Disorder, Hx Schizophrenia Traumatic Medical History: Reports: Hx Fractures - conner hips, 2002 LT, 2008 RT Infectious Medical History: Denies: Hx Hepatitis, Hx HIV Past Surgical History: Reports: Hx Appendectomy, Hx Orthopedic Surgery, Hx Tonsillectomy. Denies: Hx Bowel Surgery, Hx Section, Hx Cholecystectomy, Hx Coronary Artery Bypass Graft, Hx Gastric Bypass Surgery, Hx Herniorrhaphy, Hx Hysterectomy, Hx Mastectomy, Hx Open Heart Surgery, Hx Pacemaker, Hx Tubal Ligation Physical Exam - Vital signs Vitals: Temp Pulse Resp BP Pulse Ox 97.4 F 89 14 126/51 H 100 02/22/20 10:02/22/20 10:02/22/20 10:02/22/20 10:01 02/22/20 10:01 - HEENT Head: Other - flap laceration to the left temporal area with no active bleeding. No: Mcclain's sign, [place]'s eyes Course - Re-evaluation Re-evalutation: I have greeted and performed a rapid initial assessment of this patient. A comprehensive ED assessment and evaluation of the patient, analysis of test results and completion of medical decision making process will be conducted by an additional ED providers. - Vital Signs Vital signs: Temp Pulse Resp BP Pulse Ox 97.4 F 89 14 126/51 H 100 02/22/20 10:01 02/22/20 10:02/22/20 10:02/22/20 10:02/22/20 10:01 Doctor's Discharge - Discharge Referrals: MARIA ALEJANDRA SPEAR MD [Primary Care Provider] - Follow up as needed
[2020-02-22] MEDS ORDERED: LIDOCAINE 4%/TETRACAINE 0.5%/EPI 0.18% 5 ML TOPICAL SOLN TOP ONE (10:30)
--- NOTE | 2020-02-22 10:52 | ER Document Report ---
ED Fall - General Chief Complaint: Facial Injury Stated Complaint: FALL/LACERATION BY LEFT EYEBROW Time Seen by Provider: 02/22/20 09:58 Primary Care Provider: MARIA ALEJANDRA SPEAR MD [Primary Care Provider] - Follow up as needed TRAVEL OUTSIDE OF THE [place] IN LAST 30 DAYS: No - HPI Notes: Chief Complaint: Face laceration, fall Historian: History obtained from patient HPI: This is a 89-year-old female presents to the ED after ground-level fall at home just prior to arrival. Patient's daughter accompanies her. Patient says she lost her balance while standing in the bathroom and fell forward striking the floor. Her glasses caused a left eyebrow laceration. Daughter helped patient on the floor, patient is able to ambulate on her own. Unsure of tetanus status. She denies LOC. Patient's daughter says she is acting appropriate and at her baseline. Patient denies severe headache, vision changes, confusion, nausea/vomiting, severe headache, neck pain, chest pain, shortness of breath, abdominal pain, back pain, or extremity pain. Patient not taking any blood thinners. No treatments tried prior to arrival. Denies any other complaints beyond the left eyebrow laceration. ROS: Constitutional: no fevers. HEENT: no MANE, sore throat, or vision changes. CV: no chest pain or palpitations. Resp: no cough or SOB. GI: no abdominal pain, or n/v/d. : no dysuria, hematuria, or incont. MSK: no back pain, no joint swelling/redness. Skin: no rashes or itching. Neuro: no seizures, weakness, numbness, or confusion. Hematological: no ecchymosis or easy bleeding. Endocrine: no polyuria/polydipsia, no heat/cold intolerance. Psych: no SI/HI, AH/VH or memory loss. PMHx: Reviewed and agree as charted by RN. PSHx: Reviewed and agree as charted by RN. SOCHx: Reviewed and agree as charted by RN. FHX: No significant familial comorbid conditions directly related to patient complaint Current Medications: Reviewed and agree with the patient medications as charted by the RN. Allergies: Reviewed and agree with the listed allergies as charted by the RN Physical Exam: Vitals: Reviewed in chart as documented by RN. General: Alert and in NAD. Head: Normocephalic; left eyebrow-2 and half centimeter avulsion laceration to the lateral portion of the superior orbit. Mild bleeding. No step-off or deformity palpated. Patient has EOMI, including superior vision. Vision grossly normal. Negative raccoon, negative steen's. No otorrhea, rhinorrhea. Negative hemotympanum bilateral. Eyes: PERRLA, Conjunctivae clear sclerae non-icteric bilat ENT: no soft palate swelling or uvular deviation Neck: trachea midline, no unilateral swelling/tenderness/lymphadenopathy 9 C-spine tenderness. No step-off or deformity. Full range of motion. sensation intact to BUE distally. from of BUE- strength 5/5 and equal to BUE. pulses 2+ to BUE. CV: RRR, no M/R/G; symmetric distal pulses Resp: respirations even and unlabored, CTA bilat. GI: abd soft and nondistended. NTTP. normal BS. no masses/HSM. no CVAT bilat MSK: FROM of all extremities. No midline CTL spine tenderness/deformity. No pelvic tenderness/deformity. from of bilat hips. baseline LLE shortening due to prior hip replacement. pulses 2+ and equal to BLE. Skin: warm, moist, good turgor. no rash/lesions Neuro: Alert and oriented X 4. following CN 2-12 intact. no unilateral weakness/numbness Psych: No SI/HI or AH/VH. ED Results: Medical Decision-Making: Medical Decision-making/Differential Diagnosis: Consider various etiologies including but not limited to ICH, mild tbi, ski n/soft tissue structure injury, MSK injury, strain/sprain, fracture, dislocation, bursitis, tendonitis, contusion, ect Plan-triage provider ordered a CT head, CT C-spine, tetanus, suture tray. Will place let on the wound while pending imaging. This course of action was discussed with the patient and/or family. They were amenable to this, verbalized understanding, and were without further questions. Reviewed imaging. CT had noted soft tissue injury but no other acute pathology. CT C-spine: Noted chronic changes. Laceration was irrigated and cleaned and repaired with 7 sutures of 5-0 Ethilon. Tolerated well. Discussed home care and return factors. Suture removal 3 to 5 days. Diagnosis: fall, closed head injury, left eyebrow laceratoin Condition: stable Disposition: discharge - Related data Allergies/Adverse Reactions: bacitracin [From Neosporin] Allergy (Severe, Verified 05/02/15 14:30) gramicidin D [From Neosporin] Allergy (Severe, Verified 05/02/15 14:30) neomycin sulfate [From Neosporin] Allergy (Severe, Verified 05/02/15 14:30) polymyxin B [From Neosporin] Allergy (Severe, Verified 05/02/15 14:30) Home Medications: synthroid Past Medical History - Social History Smoking Status: Never Smoker Chew tobacco use (# tins/day): No Frequency of alcohol use: None Drug Abuse: None Family History: Reviewed & Not Pertinent - Past Medical History Cardiac Medical History: Reports: Hx Hypercholesterolemia, Hx Hypertension Denies: Hx Atrial Fibrillation, Hx Congestive Heart Failure, Hx Coronary Artery Disease, Hx Heart Attack, Hx Peripheral Vascular Disease, Hx Heart Murmur Pulmonary Medical History: Denies: Hx Asthma Neurological Medical History: Denies: Hx Cerebrovascular Accident, Hx Seizures Endocrine Medical History: Reports: Hx Hypothyroidism. Denies: Hx Graves' Disease, Hx Hyperthyroidism Renal/ Medical History: Reports: Hx Ovarian Cysts - unilat S&O at age 26 years. Denies: Hx End Stage Renal Disease, Hx Kidney Stones, Hx Peritoneal Dialysis, Hx Pelvic Inflammatory Disease Malignancy Medical History: Denies: Hx Breast Cancer, Hx Cervical Cancer, Hx Leukemia, Hx Ovarian Cancer GI Medical History: Denies: Hx Hepatitis, Hx Hiatal Hernia, Hx Ulcer Musculoskeletal Medical History: Reports Hx Arthritis, Denies Hx Fibromyalgia, Denies Hx Systemic Lupus Erythematosus Psychiatric Medical History: Reports: Hx Depression Denies: Hx Bipolar Disorder, Hx Post Traumatic Stress Disorder, Hx Schizophrenia Traumatic Medical History: Reports: Hx Fractures - conner hips, 2002 LT, 2008 RT Infectious Medical History: Denies: Hx Hepatitis, Hx HIV Past Surgical History: Reports: Hx Appendectomy, Hx Orthopedic Surgery, Hx Tonsillectomy. Denies: Hx Bowel Surgery, Hx Section, Hx Cholecystectomy, Hx Coronary Artery Bypass Graft, Hx Gastric Bypass Surgery, Hx Herniorrhaphy, Hx Hysterectomy, Hx Mastectomy, Hx Open Heart Surgery, Hx Pacemaker, Hx Tubal Ligation - Immunizations Hx Pneumococcal Vaccination: 12/20/18 Physical Exam - Vital signs Vitals: Temp Pulse Resp BP Pulse Ox 97.4 F 89 14 126/51 H 100 02/22/20 10:01 02/22/20 10:01 02/22/20 10:01 02/22/20 10:01 02/22/20 10:01 Course - Vital Signs Vital signs: Temp Pulse Resp BP Pulse Ox 97.4 F 89 14 126/51 H 100 02/22/20 10:01 02/22/20 10:01 02/22/20 10:01 02/22/20 10:01 02/22/20 10:01 Procedures - Laceration/Wound Repair Face Time completed: 12:00 Wound length (cm): 2.5 Wound's Depth, Shape: Irregular, Flap Laceration pre-procedure: Shur-Clens applied Anesthetic type: Other - LET Wound explored: Clean, No foreign body removed Irrigated w/ Saline (mLs): 100 Wound Debrided: Minimal Wound Repaired With: Sutures Suture Size/Type: 5:0, Ethilon Number of Sutures: 7 Layer Closure?: No Post-procedure wound care: Sterile dressing applied Post-procedure NV exam normal: Yes Complications: No Discharge - Discharge Clinical Impression: Fall Qualifiers: Encounter type: initial encounter Qualified Code(s): W19.XXXA - Unspecified fall, initial encounter Laceration of left eyebrow without complication Qualifiers: Encounter type: initial encounter Qualified Code(s): S01.112A - Laceration without foreign body of left eyelid and periocular area, initial encounter Closed head injury Qualifiers: Encounter type: initial encounter Qualified Code(s): S09.90XA - Unspecified injury of head, initial encounter Condition: Stable Disposition: HOME, SELF-CARE Instructions: Laceration Care ([facility]), Facial Laceration ([facility]) Additional Instructions: Turn to the ER or go to your primary doctor to have sutures removed in 3 to 5 days. Follow-up for instructions on wound care at home. tylenol and motrin for pain. Return to the ER if your condition worsens. Referrals: MARIA ALEJANDRA SPEAR MD [Primary Care Provider] - Follow up as needed
--- NOTE | 2020-02-22 11:19 | RADIOLOGY REPORT (SQ) ---
EXAM DESCRIPTION: CT HEAD WITHOUT IMAGES COMPLETED DATE/TIME: 02/22/2020 10:48 am REASON FOR STUDY: head injury COMPARISON: None. TECHNIQUE: Axial images acquired through the brain without intravenous contrast. Images reviewed wi th bone, brain and subdural windows. Additional sagittal and coronal reconstructions were generated. Images stored on PACS. All CT scanners at this facility use dose modulation, iterative reconstruction, and/or weight based d osing when appropriate to reduce radiation dose to as low as reasonably achievable (ALARA). [facility]: Dose Right [facility]: CareDose [facility]: Dose Right [facility]: Teradose 4D [facility]: [employer] RADIATION DOSE: CT Rad equipment meets quality standard of care and radiation dose reduction techniq ues were employed. CTDIvol: 53.2 mGy. DLP: 1044 mGy-cm. mGy. LIMITATIONS: None. FINDINGS: VENTRICLES: Normal size and contour. CEREBRUM: No masses. No hemorrhage. No midline shift. No evidence for acute infarction. Normal gra y/white matter differentiation. No areas of low density in the white matter. CEREBELLUM: No masses. No hemorrhage. No alteration of density. No evidence for acute infarction. EXTRAAXIAL SPACES: No fluid collections. No masses. ORBITS AND GLOBE: Subcutaneous gas is seen of the left supraorbital soft tissues noting multiple punc lara hyperattenuating foci possibly on the basis of retained radiopaque foreign bodies. These appear to localize to the upper lid palpebral mucosa versus cornea and/or adjacent sclera. The globe appea rs to be intact. No intraconal or extraconal soft tissue mass or hematoma. CALVARIUM: No fracture. PARANASAL SINUSES: No fluid or mucosal thickening. SOFT TISSUES: No mass or hematoma. OTHER: No other significant finding. IMPRESSION: Left supraorbital soft tissue injury with subcutaneous gas in the appearance of multiple retained radiopaque palpebral mucosal versus corneal/scleral foreign bodies. No evidence of calvari al injury or intracranial hemorrhage. EVIDENCE OF ACUTE STROKE: NO. COMMENT: Quality ID # [id number]: Final reports with documentation of one or more dose reduction techniques (e.g., Automated exposure control, adjustment of the mA and/or kV according to patient size, use of iterative reconstruction technique) TECHNICAL DOCUMENTATION: JOB ID: [id number] 2010 [employer]- All Rights Reserved Reading location - IP/workstation name: [email or web address]
--- NOTE | 2020-02-22 11:23 | RADIOLOGY REPORT (SQ) ---
EXAM DESCRIPTION: CT CERVICAL SPINE WITHOUT IMAGES COMPLETED DATE/TIME: 02/22/2020 10:48 am REASON FOR STUDY: head injury COMPARISON: 08/23/[address] TECHNIQUE: Axial images acquired through the cervical spine without intravenous contrast. Images re viewed with lung, soft tissue and bone windows. Reconstructed coronal and sagittal MPR images review ed. Images stored on PACS. All CT scanners at this facility use dose modulation, iterative reconstruction, and/or weight based d osing when appropriate to reduce radiation dose to as low as reasonably achievable (ALARA). [facility]: Dose Right [facility]: CareDose [facility]: Dose Right [facility]: Teradose 4D [facility]: [employer] RADIATION DOSE: CT Rad equipment meets quality standard of care and radiation dose reduction techniq ues were employed. CTDIvol: 8.8 mGy. DLP: 151 mGy-cm. mGy. LIMITATIONS: None. FINDINGS: ALIGNMENT: Anatomic. MINERALIZATION: Normal. VERTEBRAL BODIES: No fractures or dislocation. DISCS: Multilevel disc space narrowing with osteophytes. FACETS, LATERAL MASSES, POSTERIOR ELEMENTS: Facet arthropathy. No fractures. No dislocation. No ac nico findings. HARDWARE: None in the spine. VISUALIZED RIBS: No fractures. LUNG APICES AND SOFT TISSUES: Re- demonstration of increased interstitial markings with bronchiectasi s, similar to that seen on comparison chest CT. OTHER: No other significant finding. IMPRESSION: No evidence of acute osseous injury. Background of multilevel spondylotic changes. TECHNICAL DOCUMENTATION: JOB ID: [id number] Quality ID # [id number]: Final reports with documentation of one or more dose reduction techniques (e.g., Au tomated exposure control, adjustment of the mA and/or kV according to patient size, use of iterative reconstruction technique) 2010 [employer]- All Rights Reserved Reading location - IP/workstation name: [email or web address]
[2020-02-22 12:35] VITALS: BP 132/69
== END 2020-02-22 12:45 | disposition home or self-care (01) ==
LOC: ER 09:44
DX: S01.112A Laceration without foreign body of left eyelid and periocular area, initial encounter (principal); S09.90XA Unspecified injury of head, initial encounter; W19.XXXA Unspecified fall, initial encounter; Y92.002 Bathroom of unspecified non-institutional (private) residence as the place of occurrence of the external cause; I10 Essential (primary) hypertension
CPT/HCPCS: 99284; 90471; 70450; 72125; 90715; 12013; J3490 ×2